=== PATIENT | female | born 1955 | race Caucasian/White ===

== ENCOUNTER 2018-12-26 05:44 | Inpatient (IN) ==
[2018-12-20 14:27] LABS: Appearance,Urine CLEAR; Bilirubin,Urine NEG (NEG); Color,Urine STRAW; Glucose,Urine (UA) NEGATIVE (NEG); Leukocyte Esterase,Urine NEG /uL (NEG); Protein,Urine NEG (NEG); Specific Gravity,Urine 1.009 (1.000-1.035); Urine Blood NEG mg/dL (<0.03); Urobilinogen,Urine NEG (NEG)
[2018-12-20 15:24] LABS: Basophils # (Auto) 0.1 K/mcL (0.0-0.3); Basophils % (Auto) 0.9 % (0.0-2.0); Eosinophils # (Auto) 0.2 K/mcL (0.0-0.7); Eosinophils % (Auto) 1.9 % (0.0-7.0); Granulocytes % (Auto) 60.7 % (38.0-78.0); Lymphocytes # (Auto) 2.3 K/mcL (1.5-4.8); Lymphocytes % (Auto) 28.3 % (15.5-49.0); Mean Cell Volume 93.2 fL (80.0-100.0); Mean Corpuscular HGB Conc 32.3 g/dL (31.0-36.0); Monocytes # (Auto) 0.7 K/mcL (0.1-0.9); Monocytes % (Auto) 8.2 % (1.0-12.0); Platelet Count 311 K/mcL (140-440); RBC 4.12 M/mcL (4.00-5.20); Red Cell Distribution Width 12.8 % (11.5-14.5)
[2018-12-20 16:19] LABS: Blood Urea Nitrogen 17 mg/dl (8-23)
[~2018-12-26 05:44] MED LIST: IPRATROPIUM/ALBUTEROL 3 ML AMPUL.NEB NEB PRN; SCOPOLAMINE 1 PATCH PATCH TOPICAL PRN
[2018-12-26] MEDS ORDERED: PREGABALIN 75 MG CAPSULE PO SCH (06:00)
[2018-12-26] MEDS ORDERED: CELECOXIB 200 MG CAPSULE PO SCH (06:00)
[2018-12-26] MEDS ORDERED: oxyCODONE 10 MG TAB.ER.12H PO SCH (06:00)
[2018-12-26] MEDS ORDERED: 0.9 % SODIUM CHLORIDE 9 ML, KETOROLAC 30 MG, ROPIVACAINE HCL/PF 49.5 ML, EPINEPHrine 0.... IJ SCH (06:00)
[2018-12-26] MEDS ORDERED: ceFAZolin 2 GM in DEXTROSE 5% IN WATER 50 ML IV SCH (06:00)
[2018-12-26] MEDS ORDERED: PREGABALIN 150 MG CAPSULE PO SCH (07:00)
[2018-12-26] MEDS ORDERED: GENTAMICIN SULFATE 800 MG/20 ML VIAL IR ONE (09:13)
[2018-12-26] MEDS ORDERED: DEXAMETHASONE 10 MG/ML VIAL IV ONE (09:30)
[2018-12-26] MEDS ORDERED: ONDANSETRON 4 MG/2 ML VIAL IV ONE (09:30)
[2018-12-26] MEDS ORDERED: ROPIVACAINE HCL/PF 30 ML VIAL IJ ONE (09:30)
[2018-12-26] MEDS ORDERED: PHENYLEPHRINE 10 MG/ML VIAL IV ONE (09:30)
[2018-12-26] MEDS ORDERED: LIDOCAINE HCL/PF 100 MG/5 ML SYRINGE IV ONE (09:30)
[2018-12-26] MEDS ORDERED: KETAMINE 100 MG/ML ML IV ONE (09:30)
[2018-12-26] MEDS ORDERED: GLYCOPYRROLATE 0.2 MG/ML VIAL IV ONE (09:30)
[2018-12-26] MEDS ORDERED: PROPOFOL 200 MG/20 ML VIAL IV ONE (09:30)
[2018-12-26] MEDS ORDERED: MIDAZOLAM 5 MG/5 ML VIAL IV ONE (09:30)
[2018-12-26] MEDS ORDERED: TRANEXAMIC ACID 1,000 MG/10 ML VIAL IV ONE ×2 (09:30→11:24)
[2018-12-26] MEDS ORDERED: METHOCARBAMOL 1,000 MG/10 ML VIAL IV PRN (11:16)
[2018-12-26] MEDS ORDERED: ONDANSETRON 4 MG/2 ML VIAL IV PRN ×2 (11:16→11:24)
[2018-12-26] MEDS ORDERED: MEPERIDINE 25 MG/ML SYRINGE IV PRN (11:16)
[2018-12-26] MEDS ORDERED: IPRATROPIUM/ALBUTEROL 3 ML AMPUL.NEB NEB PRN (11:16)
[2018-12-26] MEDS ORDERED: ACETAMINOPHEN 1,000 MG/100 ML BOTTLE IV ONE (11:16)
[2018-12-26] MEDS ORDERED: ePHEDrine 50 MG/ML AMPUL IV PRN (11:16)
[2018-12-26] MEDS ORDERED: POTASSIUM CHLORIDE 10 MEQ TABLET PO PRN (11:23)
[2018-12-26] MEDS ORDERED: ALBUTEROL SULFATE 2.5 MG/3 ML NEBULIZER IH PRN (11:23)
[2018-12-26] MEDS ORDERED: FUROSEMIDE 20 MG TABLET PO PRN (11:23)
[2018-12-26] MEDS ORDERED: LORazepam 0.5 MG TABLET PO PRN (11:23)
--- NOTE | 2018-12-26 11:23 | Brief Operative Note ---
Date of procedure: 12/26/18 Pre-op diagnosis: right knee oa Post-op diagnosis: same Procedure: right total knee arthroplasty Grafts/Implants: Yes Anesthesia: spinal Complications: none Surgeon: Main Zurita [employer]: Kristen Liu Estimated blood loss (cc): 150 Tourniquet Time (Minutes): 68 Specimens Removed/Pathology: none sent Condition: stable Disposition: PACU
[2018-12-26] MEDS ORDERED: FLEETS ADULT ENEMA PR PRN (11:24)
[2018-12-26] MEDS ORDERED: BISACODYL 10 MG SUPP.RECT PR PRN (11:24)
[2018-12-26] MEDS ORDERED: MAGNESIUM HYDROXIDE 30 ML ORAL.SUSP PO PRN (11:24)
[2018-12-26] MEDS ORDERED: BENZOCAINE/MENTHOL 1 LOZENGE PO PRN (11:24)
[2018-12-26] MEDS ORDERED: ONDANSETRON 4 MG ODT TABLET SL PRN (11:24)
[2018-12-26] MEDS ORDERED: POLYETHYLENE GLYCOL 3350 17 GM PACKET PO PRN (11:24)
[2018-12-26] MEDS ORDERED: LACTATED RINGERS 1,000 ML IV SCH (11:30)
--- NOTE | 2018-12-26 11:51 | Operative Note ---
DATE OF OPERATION: 12/26/2018 PREOPERATIVE DIAGNOSIS: Degenerative joint disease, right knee. POSTOPERATIVE DIAGNOSIS: Degenerative joint disease, right knee. PROCEDURE PERFORMED: Right total knee arthroplasty. SURGEON: Lynette Zurita M.D. VICE PRESIDENT OF DEVELOPMENT SURGEON: Kristen Liu PA-C. The PA's assistance was required for the safe and efficient completion of the entire case. This provider's expertise and technical skill were required throughout the case. The PA assisted with preoperative coordination, intraoperative retraction, wound closure, dressing and splint application, as well as postoperative documentation and care coordination. ANESTHESIA: Spinal with LMA assist. ESTIMATED BLOOD LOSS: 150 mL. COMPLICATIONS: None noted. SPECIMENS REMOVED: None. DRAINS: None. TOURNIQUET TIME: 68 minutes at 300 mmHg. IMPLANTS: DePuy Attune Revision tibial base fixed bearing size 6, cemented; DePuy Attune tibial insert fixed bearing posterior stabilized size 7, 6 mm AOX; DePuy Attune femoral posterior stabilized size 7 right, cemented; DePuy Attune patella medialized dome 38 mm, cemented AOX; DePuy CMW2 bone cement 20 grams x5. INDICATIONS: The patient has had a long-standing history of worsening pain in the knee that has failed conservative treatment. Radiographs have confirmed advanced degenerative joint disease. After a long discussion about treatment options, the patient elected to proceed with a knee arthroplasty. The risks and benefits were discussed with the patient in detail including, but not limited to, the risks of anesthesia, problems with the heart or lungs related to anesthesia, infection, compromise or injury to the nerves and blood vessels, deep venous thrombosis, pulmonary embolism, pneumonia, continued pain after surgery, worsening pain or symptoms after surgery, swelling, loss of motion, instability, leg length discrepancy, and need for repeat surgery. DESCRIPTION OF PROCEDURE: The patient was seen in the pre-anesthesia waiting room where all questions were answered and the correct side and site were identified and marked. The patient was transferred to the operating room and administered the anesthetic and given pre-operative antibiotics. A time-out was then called. The extremity was prepped and draped, exsanguinated, and the tourniquet was inflated to 300 mmHg. A midline skin incision was then made with a standard medial parapatellar arthrotomy. Debridement of the menisci, ACL, and PCL was performed followed by balancing releases in the medial lateral plane. We then established intramedullary access to both the femur and tibia in a standard fashion. The femoral guide alanna was initially placed with the distal femoral guide, pinned into place, and the distal femoral cut was performed and checked with a flat plate. We then turned our attention to the tibia. The intramedullary guide was placed with the proximal tibial cutting block. The block was appropriately positioned off the affected side, varus and valgus was checked with the extra-medullary guide, and the block was pinned into place. The proximal tibial cut was performed and the tibia was prepared for the tibial implant with appropriate rotation. The tibia, femur, and posterior compartment were debrided of osteophytes, loose bodies, and meniscal fragments We then used the gap balancing technique to balance extension with the first two cuts and good balancing was obtained with a 10 millimeter gap block. We turned our attention back to the femur and used the referencing block and implant to size appropriately. Using the gap balancing technique for the flexion space we set our rotation of the femur off the tibial cut. Anesthesia gave the patient 1 gram of Tranexamic Acid via an intravenous route. We placed the 4 in 1 cutting block and made anterior, posterior, and chamfer cuts. Box plasty cuts were then made in a standard fashion for the posterior stabilized prosthesis. We then completed osteophyte release and posterior capsule release from the posterior compartment. Trials were placed and we chose the polyethylene insert thickness that provided the best stability in all planes. With the trials in place, we did a measured resection for a resurfacing patella. We sized the patella and placed the patella trial and performed a lateral facetectomy with the saw and rongeur. Good tracking was obtained. We removed all trials, irrigated and dried all cut surfaces. We cemented the components into place including tibia, femur and patella. We placed a trial liner and held the knee in full extension with the patella compressed while the cement cured. We then removed all excess cement and placed the final polyethylene tibiofemoral component. Irrigation with 3 liters of antibiotic saline was then performed using jet-lavage. We let the tourniquet down and coagulated bleeding vessels. We injected a 100 cubic centimeter volume including Ropivacaine 49.25 cubic centimeters at 5 milligrams per cubic centimeter, Ketorolac 30 milligrams, and Epinephrine 0.5 milligrams into 100 cubic centimeters volume of normal saline. We closed the retinaculum with #2 Stratafix and 0 Vicryl. We closed the subcutaneous tissue and skin in layers out to Dermabond on the skin. A sterile pressure dressing was applied. All needle and sponge counts were correct. The patient was transferred to the recovery room in stable condition. ANA PAULA:olivia Job ID: [id number] Doc ID: [id number] Lynette Zurita MD
[2018-12-26] MEDS: fentaNYL 100 MCG/2 ML VIAL IV PRN ×4 (11:57→12:08)
[2018-12-26] MEDS: KETOROLAC 15 MG/ML VIAL IV SCH ×3 (13:16→23:30)
[2018-12-26] MEDS: 0.9 % SODIUM CHLORIDE 1,000 ML IV SCH ×2 (13:18→19:37)
--- NOTE | 2018-12-26 13:26 | XRay Report ---
CLINICAL INFORMATION: Post-Op Total Knee COMPARISON: None. FINDINGS: Total knee prostheses is anatomically aligned. No osseous abnormality. Periarticular gas and soft tissue swelling seen - as expected. IMPRESSION: Negative Interpreted and Authenticated by: Main Del Cid 12/26/18
[2018-12-26] MEDS: oxyCODONE/APAP 5/325MG TABLET PO PRN ×3 (13:27→22:02)
[2018-12-26] MEDS: 0.9 % SODIUM CHLORIDE 10 ML SYRINGE IV SCH ×2 (15:12→23:30)
[2018-12-26] MEDS: ceFAZolin 1 GM VIAL IV SCH ×2 (15:25→23:30)
[2018-12-26] MEDS: PREGABALIN 150 MG CAPSULE PO SCH ×2 (15:41→20:29)
[2018-12-26] MEDS: ASPIRIN 325 MG ENTERIC COATED TABLET PO SCH (20:29)
[2018-12-26] MEDS: DOCUSATE SODIUM 100 MG CAPSULE PO SCH (20:29)
[2018-12-26] MEDS: SENNOSIDES 1 TABLET PO SCH (20:29)
[2018-12-26] MEDS: DONEPEZIL 10 MG TABLET PO SCH (20:30)
[2018-12-26] MEDS: ARIPIPRAZOLE 5 MG TABLET PO SCH (20:30)
[2018-12-26] MEDS: METHOCARBAMOL 750 MG TABLET PO PRN (20:34)
[2018-12-26] MEDS: Budesonide/Formoterol Fumarate [Symbicort] 80-4.5 mcg Inhaler INH SCH (20:37)
[2018-12-26] MEDS ORDERED: BUDESONIDE 0.5 MG/2 ML AMPUL.NEB NEB PRN (21:00)
[2018-12-27] MEDS: oxyCODONE/APAP 5/325MG TABLET PO PRN ×6 (02:04→23:16)
[2018-12-27] MEDS: METHOCARBAMOL 750 MG TABLET PO PRN ×2 (05:28→23:17)
[2018-12-27] MEDS: 0.9 % SODIUM CHLORIDE 10 ML SYRINGE IV SCH ×3 (05:28→20:35)
[2018-12-27] MEDS: KETOROLAC 15 MG/ML VIAL IV SCH ×4 (05:28→23:17)
--- NOTE | 2018-12-27 08:01 | Orthopedic Progress Note ---
Subjective Patient information: Note initiated : 12/27/18 at 7:59 am Service Date, if different from initiated Date: [] Patient: Santo Morocho 63 y/o F admitted on 12/26/18 for Right Total Knee Arthroplasty. Chief Complaint: [] Interval history: doing well. pain under control Objective Vital signs: Vital Signs Temp Pulse Pulse Resp BP Pulse Ox 12/27/18 07:56 97.1 F 58 L 18 123/54 97 12/27/18 03:36 98.1 F 59 L 20 136/72 92 12/26/18 23:31 97.2 F 66 20 111/51 92 12/26/18 19:51 97.3 F 66 18 120/56 90 12/26/18 15:35 97.8 F 68 14 118/56 91 12/26/18 14:30 58 L 114/58 96 12/26/18 14:00 65 114/58 94 12/26/18 13:33 65 116/58 93 12/26/18 13:18 66 128/66 93 12/26/18 13:03 60 120/53 94 12/26/18 12:52 95 12/26/18 12:48 63 150/67 96 12/26/18 12:30 69 141/62 92 12/26/18 12:25 97.4 F 59 L 12 138/74 93 12/26/18 12:10 97.4 F 66 11 L 145/68 93 12/26/18 11:55 97.6 F 62 11 L 130/66 95 12/26/18 11:50 97.1 F 57 L 17 99/71 95 12/26/18 11:45 74 8 L 135/59 96 12/26/18 11:40 58 L 9 L 117/36 95 12/26/18 11:35 97.0 F 63 10 L 128/52 96 Intake and Output 12/26/18 12/27/18 12/27/18 21:59 05:59 13:59 Intake Total 1400 1800 Output Total 25 Balance 1400 1775 Intake: IV 1000 Sodium Chloride 0.9% 1,000 ml @ 1000 125 mls/hr IV .Q8H [facility] Rx#: [id number] Oral 1400 800 Output: Void Amount 25 Other: Meal Dinner Percent of Meal Consumed 100% Urine Appearance Clear Urine Color Light Massiel Weight 294 lb Intake & Output: Intake & Output 12/26/18 12/27/18 12/27/18 21:59 05:59 13:59 Intake Total 1400 1800 Output Total 25 Balance 1400 1775 Weight 294 lb Intake: IV 1000 Sodium Chloride 0.9% 1,000 ml @ 1000 125 mls/hr IV .Q8H [facility] Rx#: [id number] Oral 1400 800 Output: Void Amount 25 Other: Meal Dinner Percent of Meal Consumed 100% Urine Appearance Clear Urine Color Light Massiel Incision: Yes healing Incision clean and dry: Yes Dressing: Yes clean, Yes dry, Yes intact Weight bearing status: full Neurological exam IM: Yes alert, Yes oriented X3, Yes motor sensory intact, Yes neurovascular intact Extremities exam IM: No calf tenderness, Yes Foot pink and warm, Yes neurovascular intact - Labs CBC & BMP: 12/27/18 05:08 12/20/18 11:48 Labs: Orthopedic Labs 12/20/18 11:48 PT 12.8 INR 1.0 12/27/18 12/20/18 05:08 11:48 Hgb 10.5 L 12.4 Hct 32.5 L 38.4 Assessment and Plan (1) Knee osteoarthritis pod 1 s/p tka wbat pain control dvt prophylaxis d/c planning - likely home tomorrow Status: Acute (2) Arthritis Status: Chronic
--- NOTE | 2018-12-27 08:04 | Discharge Summary ---
Ortho Discharge - TKA - Patient Instructions Diet: Regular Diet Activity: activity as tolerated, ambulate with assistive device, weight bearing as tolerated Total Knee Protocol: For Total Knee: Start ROM TOMI with stationary bike or rocking chair. Work on gaining full extension of knee. Posterior dislocation precautions provided. Hip abductor strengthening and gait training instructions provided. Apply Cryocuff as instructed. Dressing Care: May shower in 2 days - Problem Maintenance (1) Knee osteoarthritis Status: Acute (2) Arthritis Status: Chronic - Follow Up Plan Follow Up Appointments: Kristen Liu PA-C [Physician Electrical And Instrument Mechanic] - 01/10/19 9:40 am Disposition: Home, Self-Care Prognosis: Good Rehab Potential: Good I certify that the patient requires SNF services: No Overall status at discharge: patient is progressing back to baseline
[2018-12-27] MEDS: SPIRONOLACTONE 25 MG TABLET PO SCH (08:47)
[2018-12-27] MEDS: OLMESARTAN MEDOXOMIL 20 MG TABLET PO SCH (08:48)
[2018-12-27] MEDS: ARIPIPRAZOLE 5 MG TABLET PO SCH ×2 (08:48→20:31)
[2018-12-27] MEDS: PREGABALIN 150 MG CAPSULE PO SCH ×3 (08:48→20:31)
[2018-12-27] MEDS: BISOPROLOL 5 MG TABLET PO SCH (08:48)
[2018-12-27] MEDS: DULoxetine 30 MG CAPSULE PO SCH (08:48)
[2018-12-27] MEDS: DOCUSATE SODIUM 100 MG CAPSULE PO SCH ×2 (08:49→20:32)
[2018-12-27] MEDS: CHLORTHALIDONE 25 MG TABLET PO SCH (08:49)
[2018-12-27] MEDS: ASPIRIN 325 MG ENTERIC COATED TABLET PO SCH ×2 (08:49→20:32)
[2018-12-27] MEDS: Budesonide/Formoterol Fumarate [Symbicort] 80-4.5 mcg Inhaler INH SCH ×2 (08:51→20:34)
[2018-12-27] MEDS: SENNOSIDES 1 TABLET PO SCH (20:32)
[2018-12-27] MEDS: DONEPEZIL 10 MG TABLET PO SCH (20:32)
[2018-12-28] MEDS: oxyCODONE/APAP 5/325MG TABLET PO PRN ×2 (03:36→07:55)
[2018-12-28] MEDS: 0.9 % SODIUM CHLORIDE 10 ML SYRINGE IV SCH (05:24)
[2018-12-28] MEDS: KETOROLAC 15 MG/ML VIAL IV SCH ×2 (05:24→05:32)
--- NOTE | 2018-12-28 07:09 | Orthopedic Progress Note ---
Subjective Patient information: Note initiated : 12/28/18 at 7:09 am Service Date, if different from initiated Date: [] Patient: Santo Morocho 63 y/o F admitted on 12/26/18 for Right Total Knee Arthroplasty. Chief Complaint: [] Interval history: doing well ambulating, no complaints Objective Vital signs: Vital Signs Temp Pulse Resp BP BP Pulse Ox 12/28/18 03:37 97.7 F 68 18 102/49 94 12/27/18 23:32 97.7 F 69 20 95/37 94 12/27/18 18:33 99.1 F H 60 20 93/44 96 12/27/18 16:00 97.4 F 65 18 104/49 95 12/27/18 12:00 97.1 F 64 18 90/50 98 12/27/18 07:56 97.1 F 58 L 18 123/54 97 Intake and Output 12/27/18 12/28/18 12/28/18 21:59 05:59 13:59 Intake Total 1840 400 Output Total 275 100 Balance 1565 300 Intake: Oral 1840 400 Output: Void Amount 275 100 Other: Meal Dinner Percent of Meal Consumed 100% Feeding Ability Independent Urine Appearance Clear Clear Urine Color Bright Yellow Dark Yellow # Voids 1 1 Weight 294 lb Intake & Output: Intake & Output 12/27/18 12/28/18 12/28/18 21:59 05:59 13:59 Intake Total 1840 400 Output Total 275 100 Balance 1565 300 Weight 294 lb Intake: Oral 1840 400 Output: Void Amount 275 100 Other: Meal Dinner Percent of Meal Consumed 100% Feeding Ability Independent Urine Appearance Clear Clear Urine Color Bright Yellow Dark Yellow # Voids 1 1 Incision: Yes healing Incision clean and dry: Yes Dressing: Yes clean, Yes dry, Yes intact Weight bearing status: full Neurological exam IM: No abnormal gait, Yes alert, Yes oriented X3, Yes ne urovascular intact Extremities exam IM: Yes calf tenderness, Yes Foot pink and warm, Yes neurovascular intact - Labs CBC & BMP: 12/28/18 04:52 12/20/18 11:48 Labs: Orthopedic Labs 12/20/18 11:48 PT 12.8 INR 1.0 12/28/18 12/27/18 12/20/18 04:52 05:08 11:48 Hgb 8.9 L 10.5 L 12.4 Hct 27.5 L 32.5 L 38.4 Assessment and Plan (1) Knee osteoarthritis pod 2 s/p tka wbat pain control dvt prophylaxis d/c planning - home today Status: Acute (2) Arthritis Status: Chronic
[2018-12-28] MEDS: DOCUSATE SODIUM 100 MG CAPSULE PO SCH (07:54)
[2018-12-28] MEDS: ARIPIPRAZOLE 5 MG TABLET PO SCH (07:54)
[2018-12-28] MEDS: OLMESARTAN MEDOXOMIL 20 MG TABLET PO SCH (07:54)
[2018-12-28] MEDS: CHLORTHALIDONE 25 MG TABLET PO SCH (07:54)
[2018-12-28] MEDS: PREGABALIN 150 MG CAPSULE PO SCH (07:57)
[2018-12-28] MEDS: ASPIRIN 325 MG ENTERIC COATED TABLET PO SCH (07:57)
[2018-12-28] MEDS: DULoxetine 30 MG CAPSULE PO SCH (07:57)
[2018-12-28] MEDS: SPIRONOLACTONE 25 MG TABLET PO SCH (07:58)
[2018-12-28] MEDS: BISOPROLOL 5 MG TABLET PO SCH (07:59)
[2018-12-28] MEDS: Budesonide/Formoterol Fumarate [Symbicort] 80-4.5 mcg Inhaler INH SCH (09:28)
== END 2018-12-28 10:59 | disposition home or self-care (01) | DRG 470 ==
LOC: MEDSUR 05:44
PROVIDERS: ADMIT Orthopaedic Surgery Sports Medicine; ATTEND Orthopaedic Surgery Sports Medicine

== ENCOUNTER 2022-03-06 17:49 | Inpatient (IN) ==
--- NOTE | 2022-03-06 18:01 | Emergency Department Note ---
HPI General Chief complaint: Rib Pain Stated complaint: rib pain Time Seen by Provider: 03/06/22 17:57 Source: patient Mode of arrival: ambulatory Limitations: no limitations History of Present Illness HPI Narrative: CurrentlyNarrative: Patient is a 66-year-old female that comes into the emergency department today by EMS after she tripped at home and had a ground-level fall. Patient indicates that she hit the left side of her ribs on the ground and had a sharp pain to the lateral side of left rib. This is aggravated with taking a deep breath. She rates the pain 8 out of 10 on 0-10 numerical pain scale. She denies hitting her head, loss of consciousness, or pain in any other area of her body today. She indicates that she fell approximately 2 hours prior to arrival to the emergency department. She has not had any fevers, chills, cough, shortness of breath, abdominal pain, nausea, or vomiting. She does have a history of COPD and typically wears 2 L of O2 continuously. Related Data Home Medications Medication Instructions Recorded Confirmed budesonide 0.25 mg/2 mL suspension 0.25 mg IH PRN PRN Shortness Of 12/20/18 02/03/22 for nebulization Breath chlorthalidone 25 mg tablet 25 mg PO DAILY 12/20/18 02/03/22 pregabalin 150 mg capsule 150 mg PO TID 12/20/18 02/03/22 diltiazem HCl 360 mg capsule,24 360 mg PO QAM 10/15/20 02/03/22 hr,extended release Previous Rx's Medication Instructions Recorded albuterol sulfate 2.5 mg (3 mL) inhalation PRN 02/16/21 Shortness Of Breath #180 mL tamsulosin 0.4 mg capsule 0.4 mg PO QHS #30 caps 12/02/21 lorazepam 0.5 mg tablet See Rx Instructions .Route 12/24/21 .COMPLEX #35 tabs aripiprazole 5 mg tablet See Rx Instructions .Route 02/02/22 .COMPLEX #15 tabs benztropine 0.5 mg tablet 0.5 mg PO QHS #30 tabs 02/02/22 doxepin 25 mg capsule 25 mg PO QHS #30 caps 02/02/22 duloxetine 60 mg capsule,delayed 120 mg PO DAILY #60 caps 02/02/22 release lamotrigine 100 mg tablet 50 mg PO QDAY 30 days #15 tabs 02/02/22 fluticasone 250 mcg-salmeterol 50 1 inh inhalation BID #60 ea 02/03/22 mcg/dose blistr powdr for inhalation (Advair Diskus) ipratropium 20 mcg-albuterol 100 1 puff inhalation QID PRN 02/03/22 mcg/actuation mist for inhalation shortness of breath or wheezing #4 (Combivent Respimat) grams Allergies Allergy/AdvReac Type Severity Reaction Status Date / Time fluoxetine [From Prozac] AdvReac Mild Agitated Verified 03/06/22 17:52 prednisone AdvReac Mild Agitated Verified 03/06/22 17:52 tramadol AdvReac Mild Wheezing Verified 03/06/22 17:52 Review of Systems ROS ROS Narrative: Narrative: All systems ED: reviewed and negative except as stated. [facility] Narrative Patient History Narrative: Narrative: Medical/Surgical/Family History All Active Problems (Updated 03/06/22 @ 20:43 by CECILY Dugan) Multiple rib fractures (Acute) Urinary tract infection (Acute) Bladder pain (Chronic 09/29/09) Interstitial cystitis (Chronic 09/29/09) Burning pain (Chronic 09/29/09) Suprapubic abdominal pain (Chronic 09/29/09) Urinary frequency (Chronic 09/29/09) Nocturia (Chronic 09/29/09) Urgency of urination (Chronic 09/29/09) Bipolar disorder (Chronic) Depression (Chronic) Dizzy spells (Chronic) Headache (Chronic) Arthritis (Chronic) Unspecified symptom associated with female genital organs (Chronic) Dysuria (Chronic) Incomplete bladder emptying (Chronic 01/08/10) Knee osteoarthritis (Chronic) Endometriosis (Chronic) Tremor (Chronic) Pain, joint, ankle, right (Chronic) Atrial fibrillation (Chronic) Hypertension (Chronic) Borderline personality disorder (Chronic) Menopausal disorder (Chronic) Back pain (Chronic) Suicidal ideation (Chronic) Bipolar II disorder (Chronic) Generalized anxiety disorder (Chronic) Excoriation (skin-picking) disorder (Chronic) Medication management (Chronic) Left knee pain (Chronic) Knee joint effusion (Chronic) Degenerative joint disease (Chronic) Abdominal pain (Chronic) Pelvic pain (Chronic) Left leg pain (Chronic) Right leg pain (Chronic) Chronic pain (Chronic) GERD (gastroesophageal reflux disease) (Chronic) Nicotine dependence, cigarettes, uncomplicated (Chronic) COPD (chronic obstructive pulmonary disease) (Chronic) Chronic kidney disease, stage 3 (Chronic) CHF (congestive heart failure) (Chronic) Protein malnutrition (Chronic) History of right knee joint replacement (Chronic) Fibromyalgia (Chronic) Venous insufficiency (Chronic) Chronic back pain (Chronic) Colitis (Chronic) Paroxysmal atrial fibrillation with RVR (Chronic) Acute on chronic diastolic CHF (congestive heart failure) (Chronic) Low back pain (Chronic) Chronic right SI joint pain (Acute) Sacroiliitis (Acute) Hypoxemia (Chronic) BETSY (obstructive sleep apnea) (Acute) Spinal stenosis, lumbar region with neurogenic claudication (Acute) Pulmonary hypertension (Chronic) Extrapyramidal and movement disorder (Chronic) Medical History Abdominal pain Acute on chronic diastolic CHF (congestive heart failure) Arthritis Atrial fibrillation Back pain Bipolar disorder Stable as of 09/29/09 Bladder pain (09/29/09) Borderline personality disorder Burning pain (09/29/09) in suprapubic area relieved only slightly by voiding. Daily flare-ups CHF (congestive heart failure) Chronic back pain Chronic kidney disease, stage 3 Chronic pain Chronic right SI joint pain Colitis COPD (chronic obstructive pulmonary disease) Degenerative joint disease Depression Stable as of 09/29/09 Dizzy spells Dysuria Endometriosis Fibromyalgia GERD (gastroesophageal reflux disease) Headache Hypertension Hypoxemia Incomplete bladder emptying (01/08/10) Interstitial cystitis (09/29/09) Diagnosed 20+ years ago Knee joint effusion Knee osteoarthritis Left knee pain Left leg pain Low back pain Menopausal disorder Morbid obesity Nicotine dependence, cigarettes, uncomplicated Nocturia (09/29/09) 2-3X BETSY (obstructive sleep apnea) Pain, joint, ankle, right Paroxysmal atrial fibrillation with RVR Pelvic pain Protein malnutrition Pulmonary hypertension Right leg pain Sacroiliitis Suicidal ideation Suprapubic abdominal pain (09/29/09) Tremor Unspecified symptom associated with female genital organs Urgency of urination (09/29/09) Urinary frequency (09/29/09) every hour Venous insufficiency Surgical History History of back surgery (~10/05/17) Dr. Vidales History of biopsy of bladder (10/07/09) History of bladder surgery (~12/2009) Dr. Hernandez - Bladder pacemaker, to help with bladder urgency History of delivery 1 History of colonoscopy (~03/2012) Next due 2021 History of cystoscopy (10/07/09) with hydrodistention History of hysterectomy (~1989) History of right knee joint replacement History of surgery Placement of permanent sacral nerve stimulator Hx of tonsillectomy Family History Family/Other Alcoholism Depression Menopausal disorder Chronic back pain GERD (gastroesophageal reflux disease) Venous insufficiency Plantar fasciitis, right Interstitial cystitis Bipolar II disorder Paternal Grandmother Father Depression Other Hypertension Social History Smoking Status: Former smoker Alcohol Intake Frequency: former alcohol drinker Substance Use: does not use Exam Narrative Narrative: Narrative: General Limitations: no limitations General appearance: Present alert, in no apparent distress and obese Head Head: Present atraumatic, normocephalic and normal inspection Eye Eye: Present normal appearance; Absent scleral icterus ENT ENT: Present normal exam, normal oropharynx and mucous membranes moist Neck Neck: Present normal inspection, full ROM and other (No spinous process tenderness.) Chest Chest: Present normal inspection, symmetric chest wall rise and other (Tenderness with palpation on the left lateral rib #5 through 8. No crepitus or grating. No ecchymosis or erythema. No deformities.) Respiratory Respiratory: Present normal lung sounds bilaterally; Absent respiratory distress, rales/crackles or accessory muscle use Cardiovascular Cardiovascular: Present regular rate, normal rhythm and normal heart sounds Adbominal Abdominal: Present soft; Absent distention or tenderness Extremities Extremities: Present normal inspection, normal capillary refill and other (Tenderness with palpation on the anterior side of left knee and left lower leg. No ecchymosis, swelling, or erythema. Pedal pulses 2+ bilaterally. Normal sensation to the lower extremities. Pelvis stable without any tenderness. No tenderness with palpation of the upper extremities. ) Back Back: Absent spinous process tenderness Neurological Neurological: Present alert, oriented X3 and CN II-XII intact; Absent motor sensory deficit Expanded Neurological Patient oriented to: Present person; Absent place or time Speech: Present fluid speech CRANIAL NERVES: EOM function (II, III, IV, ): Normal, facial sensation (V): Normal, facial palsy (VII): Normal, gag reflex (IX): Normal, spinal accessory function (XI): Normal and tongue deviation (XII): Normal Motor strength - LUE: 4/5 Motor strength - RUE: 4/5 Motor strength - LLE: 4/5 Motor strength - RLE: 4/5 SENSORY EXAM UPPER EXTREMITY: Normal: light touch SENSORY EXAM LOWER EXTREMITY: Normal: light touch Coma Scale Eye Opening: Spontaneous Coma Scale Motor Response: Obeys Commands Coma Scale Verbal Response: Confused Coma Scale Total: 14 Psychiatric Psychiatric: Present normal affect and normal mood Skin Skin: Present warm (WNL), dry and normal color Course Vital Signs Vital signs: Vital Signs Temperature 97.9 F 03/06/22 17:49 Pulse Rate 73 03/06/22 17:49 Respiratory Rate 24 H 03/06/22 17:49 Blood Pressure 127/77 03/06/22 17:49 Pulse Oximetry (%) 96 03/06/22 17:49 Oxygen Delivery Method 03/06/22 17:49 Oxygen Flow Rate (L/min) 3 03/06/22 17:49 Temperature 97.9 F 03/06/22 17:49 Pulse Rate 61 03/06/22 18:46 Respiratory Rate 24 H 03/06/22 17:49 Blood Pressure 136/67 03/06/22 18:46 Pulse Oximetry (%) 97 03/06/22 18:46 Oxygen Delivery Method 03/06/22 17:49 Oxygen Flow Rate (L/min) 3 03/06/22 17:49 [facility] MDM Narrative Medical decision making narrative: Narrative: 66-year-old female who had a ground-level fall today and she described as a mechanical ground-level fall and denied hitting her head. Rib x-ray obtained today given that she was complaining of left sided rib pain. My review I do see 2 fractures without any pneumothorax or any other significant finding. Patient' s had arrived to the emergency department after x-ray was obtained of the ribs and he indicates that yesterday patient fell and hit her head and over the last month has been having episodes of confusion and increased multiple falls. Ordered head CT after obtaining this additional information from the patient's spouse today as well as added CBC, Chem-8 panel, and urinalysis. Patient was also complaining of pain in the left knee and left lower leg. Ordered x-ray of left knee and tib-fib today. Knee x-ray to my review shows osteoarthritis. No fracture identified of the tib-fib film or x-ray film today. Patient's head CT scan today as read by direct radiology and preliminary report indicates no acute intracranial abnormality. No intracranial hemorrhage and CT is normal without any skull fracture or cephalohematoma. The patient CBC shows mild anemia with hemoglobin 9.9 and hematocrit 32.8. Patient denies any abdominal pain, melena, hematochezia, or active blood loss and there does not appear to be any source of blood loss. Urinalysis did show positive nitrites, moderate blood, and large leukocytes on the urine dipstick. Specific gravity 1.025. Patient's creatinine level 1.8 today on her chemistry which patient's baseline is previous finding of 1.78 in September 2020 as well as 1.51. Patient was given a liter of normal saline today intravenously and 2 g Rocephin for treatment of UTI. Patient was medicated with IV Dilaudid for pain management x2 doses per Given that patient is requiring multiple doses of pain medication for pain management regarding rib fracture today and with urinary tract infection and multiple falls I feel patient would best be managed by hospitalization at [facility]. I was able to consult with the hospitalist at [facility] about hospital admission, and Dr. Uribe will admit patient to [facility] today. Lab Data Lab results reviewed: Yes I reviewed the patient's lab results. Radiology Data Radiology results reviewed: Yes I reviewed the patient's radiology results. Discharge Plan Patient/Caregiver Discharge Instructions Pt seen by DIRECTOR OF HOME CARE HOSPICE/PA only: No Clinical Impression: Left leg pain, Urinary tract infection Multiple rib fractures Qualifiers: Encounter type: initial encounter Fracture type: closed Laterality: left Qualified Code(s): S22.42XA - Multiple fractures of ribs, left side, initial encounter for closed fracture Patient Disposition: Xfer As Inpt ([facility]) Follow up with: Vincenzo William MD [Primary Care Provider] - Prescriptions: No Action lamotrigine 100 mg tablet 50 mg PO QDAY 30 Days Qty: 15 3RF benztropine 0.5 mg tablet 0.5 mg PO QHS Qty: 30 2RF aripiprazole 5 mg tablet See Rx Instructions .ROUTE .COMPLEX Qty: 15 2RF Dose Instruction: TAKE ONE TABLET BY MOUTH AT BEDTIME Rx Instructions: TAKE ONE HALF TABLET BY MOUTH AT BEDTIME doxepin 25 mg capsule 25 mg PO QHS Qty: 30 3RF duloxetine 60 mg capsule,delayed release(DR/EC) 120 mg PO DAILY Qty: 60 3RF diltiazem HCl 360 mg capsule,extended release 24 hr 360 mg PO QAM lorazepam 0.5 mg tablet See Rx Instructions .ROUTE .COMPLEX Qty: 35 1RF Rx Instructions: TAKE ONE TABLET BY MOUTH DAILY + ONE TABLET BY MOUTH NIGHTLY NEEDED FOR PANIC ATTACK SYMPTOMS albuterol sulfate 2.5 mg /3 mL (0.083 %) solution for nebulization 2.5 mg inhalation PRN Qty: 180 6RF Combivent Respimat 20-100 mcg/actuation mist 1 puff inhalation QID PRN (Reason: shortness of breath or wheezing) Qty: 4 6RF Rx Instructions: space evenly during waking hours fluticasone propion-salmeterol [Advair Diskus] 250-50 mcg/dose blister with device 1 inh inhalation BID Qty: 60 11RF Rx Instructions: Vigorously gargle, rinse, and spit after each use chlorthalidone 25 MG tablet 25 mg PO DAILY pregabalin 150 MG capsule 150 mg PO TID budesonide 0.25 MG/2 ML suspension for nebulization 0.25 mg IH PRN PRN (Reason: Shortness Of Breath) tamsulosin 0.4 mg capsule 0.4 mg PO QHS Qty: 30 0RF
[2022-03-06] MEDS ORDERED: 0.9 % SODIUM CHLORIDE 1,000 ML IV ONE (19:14)
[2022-03-06 19:30] LABS: POC Calcium, Ionized 1.11 (1.16-1.32); POC Creatinine 1.8 (0.6-1.2); POC Potassium 4.2 (3.3-5.1)
[2022-03-06 19:52] LABS: Basophils # (Auto) 0.06 K/mcL (0.00-0.30); Basophils % (Auto) 0.6 % (0.0-2.0); Eosinophils # (Auto) 0.11 K/mcL (0.00-0.70); Eosinophils % (Auto) 1.1 % (0.0-7.0); Hematocrit 32.8 % (34.1-44.9); Hemoglobin 9.9 g/dL (11.2-15.7); Lymphocytes % (Auto) 21.6 % (15.5-49.0); Mean Cell Volume 98.2 fL (80.0-100.0); Mean Corpuscular HGB Conc 30.2 g/dL (31.0-36.0); Mean Platelet Volume 10.3 fL (7.4-10.4); Monocytes # (Auto) 1.31 K/mcL (0.10-0.90); Monocytes % (Auto) 12.9 % (1.0-12.0); Neutrophils % (Auto) 63.3 % (38.0-78.0); Platelet Count 231 K/mcL (140-440); RBC 3.34 M/mcL (3.59-5.38); Red Cell Distribution Width 13.8 % (11.5-14.5); WBC 10.2 K/mcL (4.5-11.0)
[2022-03-06] MEDS: HYDROmorphone 0.5 MG/0.5 ML SYRINGE IV PRN ×2 (20:18→21:19)
[2022-03-06] MEDS ORDERED: cefTRIAXone 2 GM in DEXTROSE 5% IN WATER 50 ML IV ONE (20:21)
[2022-03-06 20:44] LABS: Appearance,Urine Cloudy (Clear); Bacteria,Urine MOD /hpf (0); Bilirubin,Urine Negative (Negative); Color,Urine Yellow; Culture Indicated,Urine yes; Glucose,Urine (UA) Negative (Negative); Ketones,Urine Negative (Negative); Leukocyte Esterase,Urine Large /uL (Negative); Nitrate,Urine Positive (Negative); Specific Gravity,Urine 1.025 (1.000-1.035); Urine Blood Moderate ery/mcL (Negative); Urine RBC 59 /hpf (0-3); Urine Squamous Epithelial Cell 0 /hpf (0-4); Urine WBC > 182 /hpf (0-4); Urobilinogen,Urine Normal
[2022-03-06] MEDS ORDERED: LORazepam 0.5 MG TABLET PO PRN (21:07)
[2022-03-06] MEDS ORDERED: ALBUTEROL SULFATE 2.5 MG/3 ML NEBULIZER INH PRN (21:15)
--- NOTE | 2022-03-06 21:27 | Internal Med History&Physical ---
HPI History of Present Illness Patient information: Note initiated : 03/06/22 at 9:17 pm Service Date, if different from initiated Date: [] Patient: Santo Morocho 66 y/o F admitted on for rib pain. Chief Complaint: [falls] Chief complaint: falls History of present illness: Ms. Morocho is a 66 year old F history of atrial fibrillation's on Eliquis status post pacemaker placement, COPD on home oxygen therapy baseline 2 L/min, congestive heart failure, chronic kidney disease stage III, essential hypertensions, bipolar depressions, knees osteoarthritis status post right knee replacement, presenting with frequent falls. It was reported that patient's fell around 2 AM this morning and then fell again in the afternoon. The first episode was being described as the patient's leg gave out while she was in the bathroom and she landed on her left side. The second fall episode was not being described in much details by either the family or the at the bedside. Patient's denies any chest pain or palpitations or shortness of breath at either incidents. There was also no reported loss of consciousness. Patient is currently complaining of left lateral chest pain, 8 out of 10 in severity, constant, and unable to describe the nature of the pain. CT of the head without contrast did not show any intracranial hemorrhage or any other acute intracranial pathologies. Chest x-ray preliminary result showing at least 2 left-sided rib fractures without complications such as pneumothorax or hemothorax. Labs significant for UA showing the presence of urinary tract infections. H&H stable at the baseline. Admission request was called for symptoms controlled for rib fractures as well as treatment for urinary tract infections. In additions, physical therapy Occupational Therapy evaluations and treatments for placement pending also required. Constitutional Constitutional: Absent chills, excessive sweating, fatigue, fever(s) or weakness EENT Eyes: Absent blurry vision, change in vision, loss of vision or other visual disturbances Ears: Absent decreased hearing or tinnitus Nose, mouth and throat: Absent abnormal hearing, dry mouth, headache(s), nasal congestion or sore throat Cardiovascular Cardiovascular: Present chest pain and chest pain at rest; Absent edema, irregular heart rhythm or palpatations Respiratory Respiratory: Absent cough, dyspnea or wheezing Gastrointestinal Gastrointestinal: Absent abdominal pain, constipation, diarrhea, nausea or vomiting Musculoskeletal Musculoskeletal: Absent back pain, deformity, limited range of motion, muscle cramps, muscle weakness or numbness Integumentary Integumentary: Absent lesions, rash or wounds Neurological Neurological: Absent focal weakness, headache(s) or numbness Psychiatric Psychiatric: Absent anxiety, depression or hallucinations PFSH PFSH All Active Problems (Updated 03/06/22 @ 21:25 by Samy Uribe MD) Osteoarthritis of knees, bilateral (Acute) Multiple rib fractures (Acute) Urinary tract infection (Acute) Bladder pain (Chronic 09/29/09) Interstitial cystitis (Chronic 09/29/09) Burning pain (Chronic 09/29/09) Suprapubic abdominal pain (Chronic 09/29/09) Urinary frequency (Chronic 09/29/09) Nocturia (Chronic 09/29/09) Urgency of urination (Chronic 09/29/09) Bipolar disorder (Chronic) Depression (Chronic) Dizzy spells (Chronic) Headache (Chronic) Arthritis (Chronic) Unspecified symptom associated with female genital organs (Chronic) Dysuria (Chronic) Incomplete bladder emptying (Chronic 01/08/10) Knee osteoarthritis (Chronic) Endometriosis (Chronic) Tremor (Chronic) Pain, joint, ankle, right (Chronic) Atrial fibrillation (Chronic) Hypertension (Chronic) Borderline personality disorder (Chronic) Menopausal disorder (Chronic) Back pain (Chronic) Suicidal ideation (Chronic) Bipolar II disorder (Chronic) Generalized anxiety disorder (Chronic) Excoriation (skin-picking) disorder (Chronic) Medication management (Chronic) Left knee pain (Chronic) Knee joint effusion (Chronic) Degenerative joint disease (Chronic) Abdominal pain (Chronic) Pelvic pain (Chronic) Left leg pain (Chronic) Right leg pain (Chronic) Chronic pain (Chronic) GERD (gastroesophageal reflux disease) (Chronic) Nicotine dependence, cigarettes, uncomplicated (Chronic) COPD (chronic obstructive pulmonary disease) (Chronic) Chronic kidney disease, stage 3 (Chronic) CHF (congestive heart failure) (Chronic) Protein malnutrition (Chronic) History of right knee joint replacement (Chronic) Fibromyalgia (Chronic) Venous insufficiency (Chronic) Chronic back pain (Chronic) Colitis (Chronic) Paroxysmal atrial fibrillation with RVR (Chronic) Acute on chronic diastolic CHF (congestive heart failure) (Chronic) Low back pain (Chronic) Chronic right SI joint pain (Acute) Sacroiliitis (Acute) Hypoxemia (Chronic) BETSY (obstructive sleep apnea) (Acute) Spinal stenosis, lumbar region with neurogenic claudication (Acute) Pulmonary hypertension (Chronic) Extrapyramidal and movement disorder (Chronic) Medical History Abdominal pain Acute on chronic diastolic CHF (congestive heart failure) Arthritis Atrial fibrillation Back pain Bipolar disorder Stable as of 09/29/09 Bladder pain (09/29/09) Borderline personality disorder Burning pain (09/29/09) in suprapubic area relieved only slightly by voiding. Daily flare-ups CHF (congestive heart failure) Chronic back pain Chronic kidney disease, stage 3 Chronic pain Chronic right SI joint pain Colitis COPD (chronic obstructive pulmonary disease) Degenerative joint disease Depression Stable as of 09/29/09 Dizzy spells Dysuria Endometriosis Fibromyalgia GERD (gastroesophageal reflux disease) Headache Hypertension Hypoxemia Incomplete bladder emptying (01/08/10) Interstitial cystitis (09/29/09) Diagnosed 20+ years ago Knee joint effusion Knee osteoarthritis Left knee pain Left leg pain Low back pain Menopausal disorder Morbid obesity Nicotine dependence, cigarettes, uncomplicated Nocturia (09/29/09) 2-3X BETSY (obstructive sleep apnea) Pain, joint, ankle, right Paroxysmal atrial fibrillation with RVR Pelvic pain Protein malnutrition Pulmonary hypertension Right leg pain Sacroiliitis Suicidal ideation Suprapubic abdominal pain (09/29/09) Tremor Unspecified symptom associated with female genital organs Urgency of urination (09/29/09) Urinary frequency (09/29/09) every hour Venous insufficiency Surgical History History of back surgery (~10/05/17) Dr. Vidales History of biopsy of bladder (10/07/09) History of bladder surgery (~12/2009) Dr. Hernandez - Bladder pacemaker, to help with bladder urgency History of delivery 1 History of colonoscopy (~03/2012) Next due 2021 History of cystoscopy (10/07/09) with hydrodistention History of hysterectomy (~1989) History of right knee joint replacement History of surgery Placement of permanent sacral nerve stimulator Hx of tonsillectomy Family History Family/Other Alcoholism Depression Menopausal disorder Chronic back pain GERD (gastroesophageal reflux disease) Venous insufficiency Plantar fasciitis, right Interstitial cystitis Bipolar II disorder Paternal Grandmother Father Depression Other Hypertension Social History (Updated 02/03/22 @ 11:05 by Paulina Amor, RN) marital status: single education level: high school physical activity: none smoking status: Former smoker quit date: 08/08/17 pack-years: 50 alcohol intake frequency: former alcohol drinker substance use type: does not use seatbelt use: always MEDS/ALLERGIES Home Medications and Allergies Home Medications Medication Instructions Recorded Confirmed Type pregabalin 150 mg capsule 150 mg PO TID 12/20/18 03/06/22 History diltiazem HCl 360 mg capsule,24 180 mg PO BID 10/15/20 03/06/22 History hr,extended release albuterol sulfate 2.5 mg (3 mL) inhalation PRN 02/16/21 03/06/22 Rx Shortness Of Breath #180 mL lorazepam 0.5 mg tablet See Rx Instructions .Route 12/24/21 03/06/22 Rx .COMPLEX #35 tabs aripiprazole 5 mg tablet See Rx Instructions .Route 02/02/22 03/06/22 Rx .COMPLEX #15 tabs benztropine 0.5 mg tablet 0.5 mg PO QHS #30 tabs 02/02/22 03/06/22 Rx doxepin 25 mg capsule 25 mg PO QHS #30 caps 02/02/22 03/06/22 Rx lamotrigine 100 mg tablet 50 mg PO QDAY 30 days #15 tabs 02/02/22 03/06/22 Rx apixaban 5 mg tablet (Eliquis) 1 tab PO BID 03/06/22 03/06/22 History budesonide-formoterol HFA 80 2 puff inhalation BID 03/06/22 03/06/22 History mcg-4.5 mcg/actuation aerosol inhaler (Symbicort) cholecalciferol (vitamin D3) 50 1 cap PO QAM 03/06/22 03/06/22 History mcg (2,000 unit) capsule duloxetine 60 mg capsule,delayed 60 mg PO BID 03/06/22 03/06/22 History release fluticasone 250 mcg-salmeterol 50 1 puff inhalation BID 03/06/22 03/06/22 History mcg/dose blistr powdr for inhalation (Advair Diskus) metoprolol succinate 100 mg 0.5 tab PO BID 03/06/22 03/06/22 History tablet,extended release 24 hr propafenone 150 mg tablet 2 tab PO BID 03/06/22 03/06/22 History spironolactone 25 mg tablet 1 tab PO QDAY 03/06/22 03/06/22 History torsemide 10 mg tablet 2 tab PO BID 03/06/22 03/06/22 History Allergies Allergy/AdvReac Type Severity Reaction Status Date / Time fluoxetine [From Prozac] AdvReac Mild Agitated Verified 03/06/22 17:52 prednisone AdvReac Mild Agitated Verified 03/06/22 17:52 tramadol AdvReac Mild Wheezing Verified 03/06/22 17:52 EXAM Constitutional Vitals: Temp Pulse Resp BP Pulse Ox O2 Del Method O2 Flow Rate 36.6 C 62 24 H 131/96 94 3 03/06/22 17:49 03/06/22 20:46 03/06/22 17:49 03/06/22 20:46 03/06/22 20:46 03/06/22 20:20 03/06/22 20:32 General appearance: cooperative and no acute distress Head Head exam: Present atraumatic and normocephalic Eye Eye exam: Present EOMI and PERRL ENT ENT exam: Present mucous membranes moist, normal exam and normal external ear exam Additional comments: Nasal cannula in place Neck Neck exam: Present normal inspection; Absent lymphadenopathy, tenderness or thyromegaly Respiratory Respiratory exam: Absent accessory muscle use, respiratory distress or wheezes Cardiovascular Cardiovascular exam: Present irregular rhythm; Absent JVD GI/Abdominal GI/Abdominal exam: Present normal bowel sounds and soft; Absent organomegaly or tenderness Extremities Exam Extremities exam: Present full ROM, normal capillary refill and normal inspection; Absent tenderness Additional comments: Left lateral chest wall tenderness to palpation Neurological Exam Neurological exam: Present alert, CN II-XII intact and oriented X3; Absent motor sensory deficit Psychiatric Psychiatric exam: Present normal affect and normal mood; Absent anxious or depressed Skin Skin exam: Present dry and intact DATA Data Completed and Pending Labs: Labs from last 24 hours 03/06/22 03/06/22 03/06/22 19:56 19:27 19:14 WBC 10.2 RBC 3.34 L Hgb 9.9 L Hct 32.8 L POC Hct 31.0 L MCV 98.2 MCH 29.6 MCHC 30.2 L RDW 13.8 Plt Count 231 MPV 10.3 Immature Gran % (Auto) 0.5 Neut % (Auto) 63.3 Lymph % (Auto) 21.6 Lake % (Auto) 12.9 H Eos % (Auto) 1.1 Baso % (Auto) 0.6 Lymph # (Auto) 2.20 [place] # (Auto) 1.31 H Eos # (Auto) 0.11 Baso # (Auto) 0.06 Immature Gran # 0.05 Absolute Neutrophils 6.50 POC Sodium 136 POC Potassium 4.2 POC Chloride 96 POC Total CO2 36.0 H POC BUN 22 H POC Creatinine 1.8 H POC Glucose 126 H POC WB Ioniz Calcium 1.11 L Urine Color Yellow Urine Appearance Cloudy A Urine pH 6.0 Ur Specific [place] 1.025 Urine Protein 100 mg/dl A Urine Glucose (UA) Negative Urine Ketones Negative Urine Occult Blood Moderate A Urine Nitrate Positive A Urine Bilirubin Negative Urine Urobilinogen Normal Ur Leukocyte Esterase Large A Urine RBC 59 H Urine WBC > 182 H Ur Squamous Epith Cells 0 Urine Bacteria Mod A Ur Culture Indicated? yes A/P Assessment and plan (1) Multiple rib fractures: Status: Acute Qualifiers: Encounter type: initial encounter Fracture type: closed Laterality: left Qualified Code(s): S22.42XA - Multiple fractures of ribs, left side, initial encounter for closed fracture (2) Urinary tract infection: Status: Acute (3) Depression: Status: Chronic Comment: Stable as of 09/29/09 (4) Osteoarthritis of knees, bilateral: Status: Acute (5) Hypertension: Status: Chronic (6) Bipolar II disorder: Status: Chronic Comment: current episode depressed - mild (7) COPD (chronic obstructive pulmonary disease): Status: Chronic Qualifiers: COPD type: unspecified COPD Qualified Code(s): J44.9 - Chronic obstructive pulmonary disease, unspecified (8) Chronic kidney disease, stage 3: Status: Chronic (9) CHF (congestive heart failure): Status: Chronic (10) Paroxysmal atrial fibrillation with RVR: Status: Chronic Narrative A/P Narrative: Assessment and Plans: 1. Frequent falls with left multiple ribs fractures, no complications such as pneumothorax/hemopneumothorax: Inpatient med surg Tylenol Ibuprofen Oxycodone Dilaudid IV Incentive spirometry q1HWA Supplemental oxygen applications managermanager file therapy Occupational therapy 2. Urinary tract infection: Blood culture Urine culture cbc w/ auto diff in the morning to trend WBC Rocephin Tylenol 3. Atrial fibrillation, s/p pacemaker placement: Telemetry Hold Eliquis Metoprolol ER Diltiazem ER Propafenone 4. COPD: Supplemental oxygen therapy (baseline:2L/min) Bronchodilators Advair Diskus Symbicort 5. Diastolic CHF, stable: Supplemental oxygen therapy (baseline:2L/min) Metoprolol ER Torsemide Aldactone 6. Chronic kidney disease stage III: Avoid nephrotoxic agents Saline lock Repeat CMP in the morning to trend kidney functions 7. History of essential hypertensions: Patient is currently normotensive Metoprolol ER Diltiazem ER Torsemide Aldactone 8. History of bipolar depression: Duloxetine Doxepin Aripiprazole 9. History of bilateral knee osteoarthritis, status post right knee total replacement: Continue pain management, see #1 Physical therapy Occupational therapy GI ppx: not currently indicated DVT ppx: SCDs Code status: Full Prognosis: Stable Disposition: inpatient med surg telemetry; PT OT Time Spent With Patient Time: Total time spent is greater than 50% in coordination of care (as documented) at patient's floor/unit and/or counseling patient: Total time spent with greater than 50% in coordination of care (as documented) at patient's floor/unit and/or counseling patient:: 50 - 70 minutes QUALITY Stroke Symptom Onset Unknown: No
[2022-03-06] MEDS ORDERED: IPRATROPIUM/ALBUTEROL 3 ML AMPUL.NEB NEB PRN (21:41)
[2022-03-06] MEDS ORDERED: ONDANSETRON 4 MG/2 ML VIAL IV PRN (21:41)
[2022-03-06] MEDS ORDERED: METOPROLOL TARTRATE 5 MG/5 ML VIAL IV PRN (21:41)
[2022-03-06] MEDS ORDERED: ACETAMINOPHEN 325 MG TABLET PO PRN (21:41)
[2022-03-06] MEDS ORDERED: traZODone HCL 50 MG TABLET PO PRN (21:41)
[2022-03-06] MEDS ORDERED: HYDROmorphone 0.5 MG/0.5 ML SYRINGE IV PRN (21:41)
[2022-03-06] MEDS: ARIPIPRAZOLE 5 MG TABLET PO SCH (22:10)
[2022-03-06] MEDS: 0.9 % SODIUM CHLORIDE 10 ML SYRINGE IV SCH (22:13)
[2022-03-07] MEDS: oxyCODONE HCL 5 MG TABLET PO PRN ×2 (03:46→14:55)
[2022-03-07] MEDS: 0.9 % SODIUM CHLORIDE 10 ML SYRINGE IV SCH ×3 (06:03→22:43)
[2022-03-07 06:44] LABS: Basophils # (Auto) 0.07 K/mcL (0.00-0.30); Basophils % (Auto) 0.8 % (0.0-2.0); Eosinophils # (Auto) 0.15 K/mcL (0.00-0.70); Eosinophils % (Auto) 1.8 % (0.0-7.0); Hematocrit 32.7 % (34.1-44.9); Hemoglobin 9.8 g/dL (11.2-15.7); Lymphocytes # (Auto) 1.95 K/mcL (1.50-4.80); Lymphocytes % (Auto) 23.2 % (15.5-49.0); Mean Cell Volume 98.2 fL (80.0-100.0); Mean Platelet Volume 10.2 fL (7.4-10.4); Monocytes # (Auto) 1.06 K/mcL (0.10-0.90); Monocytes % (Auto) 12.6 % (1.0-12.0); Neutrophils % (Auto) 61.1 % (38.0-78.0); Platelet Count 223 K/mcL (140-440); RBC 3.33 M/mcL (3.59-5.38); Red Cell Distribution Width 13.6 % (11.5-14.5); WBC 8.4 K/mcL (4.5-11.0)
[2022-03-07 07:21] LABS: ALT/SGPT 6 U/L (<40); AST/SGOT 13 U/L (<32); Albumin/Globulin Ratio 0.9 (1.0-2.3); Alkaline Phosphatase 78 U/L (39-117); Bilirubin,Total 0.2 mg/dL (0.1-1.0); Blood Urea Nitrogen 15 mg/dL (8-23); Carbon Dioxide 32 mmol/L (22-30); Chloride 95 mmol/L (96-108); Globulin 3.5 gm/dL (2.2-3.7); Glomerular Filtration Rate 33; Glucose 104 mg/dL (70-105)
[2022-03-07 07:22] LABS: Phosphorous 4.2 mg/dL (2.5-4.5)
[2022-03-07] MEDS: PROPAFENONE 150 MG TABLET PO SCH ×2 (08:30→21:49)
[2022-03-07] MEDS: DULoxetine 30 MG CAPSULE PO SCH ×2 (08:31→21:50)
[2022-03-07] MEDS: TORSEMIDE 10 MG TABLET PO SCH ×2 (08:31→21:49)
[2022-03-07] MEDS: VITAMIN D3 25 MCG TABLET PO SCH (08:31)
[2022-03-07] MEDS: lamoTRIgine 100 MG TABLET PO SCH (08:31)
[2022-03-07] MEDS: DILTIAZEM 180 MG CAP.XL.24H PO SCH ×2 (08:32→21:50)
[2022-03-07] MEDS: DOCUSATE SODIUM 100 MG CAPSULE PO SCH ×3 (08:32→22:42)
[2022-03-07] MEDS: cefTRIAXone 1 GM VIAL IV SCH (08:32)
[2022-03-07] MEDS: PREGABALIN 150 MG CAPSULE PO SCH ×3 (08:32→21:50)
[2022-03-07] MEDS: METOPROLOL SUCCINATE 50 MG TAB.XL.24H PO SCH ×2 (08:32→21:50)
[2022-03-07] MEDS: SPIRONOLACTONE 25 MG TABLET PO SCH (08:32)
[2022-03-07] MEDS: IPRATROPIUM/ALBUTEROL SULFATE 1 PUFF INHALER INH SCH ×4 (09:21→22:42)
--- NOTE | 2022-03-07 09:26 | XRay Report ---
HISTORY: History fell with left rib injuries FINDINGS: There are acute fractures posterolaterally in the fourth, fifth, sixth and seventh ribs. Adjacent to this is mild pleural thickening. There is no pneumothorax or pleural effusion. Lung volumes are small due to suboptimal inspiration. Heart size is normal. There is a dual-chamber pacemaker. Severe degenerative disc disease is present at L1-2 and there has been prior fusion at L3-4. IMPRESSION: Fractured left fourth through seventh ribs Interpreted and Authenticated by: Ryley Pop 03/07/22
--- NOTE | 2022-03-07 09:29 | Cat Scan Report ---
History: Trauma with head injury TECHNIQUE: The brain was imaged without contrast in axial plane at 2.5 mm intervals. Sagittal and coronal reformats were created. The radiation exposure was limited using dose reduction technology. FINDINGS: The brain is normally developed. There is no hemorrhage, edema, infarct or mass effect. The ventricles and cisterns are normal. There is no abnormal extra-axial fluid collection. Bone windows show no skull fracture. Minor mucosal thickening is seen along the kim of a couple anterior ethmoid air cells bilaterally. IMPRESSION: Normal brain Interpreted and Authenticated by: Ryley Pop 03/07/22
--- NOTE | 2022-03-07 09:30 | XRay Report ---
HISTORY: Fell, left knee injury FINDINGS: No fracture or dislocation are present. There is severe joint space narrowing in the medial joint compartment. There are spurs forming along the margins of all three compartments. Very small joint effusion is present. There is no radiopaque foreign body. Comparison with the prior exam done on 09/09/20 shows there has been significant progression of the arthritis in the medial joint space. IMPRESSION: Progressively worsening osteoarthritis No fracture Interpreted and Authenticated by: Ryley Pop 03/07/22
--- NOTE | 2022-03-07 09:32 | XRay Report ---
HISTORY: Fell, left lower leg injury FINDINGS: No fracture or dislocation are present. Osteoarthritis is present in the knee. Small calcified phleboliths are present anteriorly in the mid castillo. IMPRESSION: No fracture Interpreted and Authenticated by: Ryley Pop 03/07/22
--- NOTE | 2022-03-07 10:49 | Internal Med Progress Note ---
SUBJECTIVE Subjective Patient information: Note initiated : 03/07/22 at 10:47 am Service Date, if different from initiated Date: [] Patient: Santo Morocho 66 y/o F admitted on 03/06/22 for rib pain. Chief Complaint: [] Interval history: Ms. Morocho is a 66 year old F history of atrial fibrillation's on Eliquis status post pacemaker placement, COPD on home oxygen therapy baseline 2 L/min, congestive heart failure, chronic kidney disease stage III, essential hypertensions, bipolar depressions, knees osteoarthritis status post right knee replacement, presenting with frequent falls. It was reported that patient's fell around 2 AM this morning and then fell again in the afternoon. The first episode was being described as the patient's leg gave out while she was in the bathroom and she landed on her left side. The second fall episode was not being described in much details by either the family or the at the bedside. Patient's denies any chest pain or palpitations or shortness of breath at either incidents. There was also no reported loss of consciousness. Patient is currently complaining of left lateral chest pain, 8 out of 10 in severity, constant, and unable to describe the nature of the pain. CT of the head without contrast did not show any intracranial hemorrhage or any other acute intracranial pathologies. Chest x-ray preliminary result showing at least 2 left-sided rib fractures without complications such as pneumothorax or hemothorax. Labs significant for UA showing the presence of urinary tract infections. H&H stable at the baseline. Admission request was called for symptoms controlled for rib fractures as well as treatment for urinary tract infections. In additions, physical therapy Occupational Therapy evaluations and treatments for placement pending also required. 03/07: No major overnight events. Afebrile overnight. Currently on 3L/min oxygen. Cultures no growth to date. Patient denies any chest pain or shortness of breath. Denies any fever, chills, or sweating. Denies dysuria. Occupational therapist recommend senior living placement. Continue narcotics as needed for pain control. Continue Rocephin for urinary tract infections. Pending senior living placement. Constitutional Vitals: Vital Signs Temp Pulse Resp BP Pulse Ox O2 Del Method O2 Flow Rate 37.2 C 62 18 137/91 96 2 03/07/22 08:00 03/07/22 08:00 03/07/22 08:00 03/07/22 08:00 03/07/22 08:00 03/07/22 08:00 03/07/22 08:00 Period Temp Pulse Resp BP Sys/Guzmán Pulse Ox O2 Del Method O2 Flow Rate Last 24 Hr 36.4 C-37.2 C 60-82 16-24 108-139/50-96 94-98 Nasal Cannula- Nasal Cannula 2-3 Intake and Output 03/06/22 03/07/22 03/07/22 21:59 05:59 13:59 Intake Total 450 1000 720 Balance 450 1000 720 Weight 131.814 kg Intake & Output: Intake & Output 03/06/22 03/07/22 03/07/22 21:59 05:59 13:59 Intake Total 450 1000 720 Balance 450 1000 720 Weight 131.814 kg Intake: IV 450 600 Sodium Chloride 0.9% 1,000 ml @ 400 600 Wide Open IV BOLUS ONE Rx#: [id number] Rocephin 2 gm In Dextrose 5% in 50 Water 50 ml @ 100 mls/hr IV ONCE ONE Rx#:[id number] Oral 400 720 Other: Meal Breakfast Percent of Meal Consumed 100% Feeding Ability Assist with Tray Set Up # Voids 1 General appearance: cooperative, morbidly obese and no acute distress Exam: lethargic Head Head exam: Present atraumatic and normal inspection Eye Eye exam: Present normal appearance ENT ENT exam: Present mucous membranes moist, normal exam and normal external ear exam Additional comments: Nasal cannula in place Neck Neck exam: Present normal inspection Respiratory Respiratory exam: Present normal respiratory exam Cardiovascular Cardiovascular exam: Present irregular rhythm Additional comments: pacemaker in place Left sided chest wall tenderness to palpation GI/Abdominal GI/Abdominal exam: Present normal bowel sounds Back Exam Back exam: Present normal inspection Neurological Exam Neurological exam: Present alert and oriented X3 Skin Skin exam: Present intact and warm OBJ DATA Labs CBC & Chem 7: 03/07/22 05:28 03/07/22 05:28 Labs: Abnormal Lab Results 03/07/22 03/07/22 03/06/22 05:28 05:28 19:56 RBC 3.33 L Hgb 9.8 L Hct 32.7 L POC Hct MCHC 30.0 L Coffey % (Auto) 12.6 H Coffey # (Auto) 1.06 H Chloride 95 L Carbon Dioxide 32 H POC Total CO2 POC BUN Creatinine 1.6 H POC Creatinine POC Glucose POC WB Ioniz Calcium Albumin 3.0 L Albumin/Globulin Ratio 0.9 L Urine Appearance Cloudy A Urine Protein 100 mg/dl A Urine Occult Blood Moderate A Urine Nitrate Positive A Ur Leukocyte Esterase Large A Urine RBC 59 H Urine WBC > 182 H Urine Bacteria Mod A 03/06/22 03/06/22 19:27 19:14 RBC 3.34 L Hgb 9.9 L Hct 32.8 L POC Hct 31.0 L MCHC 30.2 L Coffey % (Auto) 12.9 H Coffey # (Auto) 1.31 H Chloride Carbon Dioxide POC Total CO2 36.0 H POC BUN 22 H Creatinine POC Creatinine 1.8 H POC Glucose 126 H POC WB Ioniz Calcium 1.11 L Albumin Albumin/Globulin Ratio Urine Appearance Urine Protein Urine Occult Blood Urine Nitrate Ur Leukocyte Esterase Urine RBC Urine WBC Urine Bacteria Meds: Medications Acetaminophen (Acetaminophen 325 Mg Tablet) 650 mg PO Q6HP PRN; Protocol PRN Reason: Per Pain Protocol/Fever > 101 Albuterol Sulfate (Albuterol Sulfate 2.5 Mg/3 Ml Nebulizer) 2.5 mg INH Q4HP PRN PRN Reason: Shortness Of Breath Albuterol/Ipratropium (Ipratropium/Albuterol 3 Ml Ampul.Neb) 3 ml NEB Q4HRT PRN PRN Reason: Wheezing Albuterol/Ipratropium (Ipratropium/Albuterol Sulfate 1 Puff Inhaler) 2 puff INH QID [facility] Benztropine Mesylate (Benztropine 1 Mg Tablet) 0.5 mg PO QHS [facility] Ceftriaxone Sodium (Ceftriaxone 1 Gm Vial) 1 gm IV Q24H [facility] Last Admin: 03/07/22 08:32 Dose: 1 gm Diltiazem HCl (Diltiazem 180 Mg Cap.Xl.24h) 180 mg PO BID [facility] Last Admin: 03/07/22 08:32 Dose: 180 mg Docusate Sodium (Docusate Sodium 100 Mg Capsule) 100 mg PO BID [facility] Last Admin: 03/07/22 08:32 Dose: 100 mg Doxepin HCl (Doxepin 25 Mg Capsule) 25 mg PO QHS [facility] Duloxetine HCl (Duloxetine 30 Mg Capsule) 60 mg PO BID [facility] Last Admin: 03/07/22 08:31 Dose: 60 mg Hydromorphone HCl (Hydromorphone 0.5 Mg/0.5 Ml Syringe) 0.5 mg IV Q2HP PRN; Protocol PRN Reason: Per Pain Protocol Last Admin: 03/07/22 08:39 Dose: 0.5 mg Ibuprofen (Ibuprofen 600 Mg Tablet) 600 mg PO QIDP PRN; Protocol PRN Reason: Per Pain Protocol/Fever > 101 Lamotrigine (Lamotrigine 100 Mg Tablet) 50 mg PO QDAY [facility] Last Admin: 03/07/22 08:31 Dose: 50 mg Lorazepam (Lorazepam 0.5 Mg Tablet) 0.5 mg PO BIDP PRN PRN Reason: Anxiety Metoprolol Succinate (Metoprolol Succinate 50 Mg Tab.Xl.24h) 50 mg PO BID [facility] Last Admin: 03/07/22 08:32 Dose: 50 mg Metoprolol Tartrate (Metoprolol Tartrate 5 Mg/5 Ml Vial) 5 mg IV Q5M PRN PRN Reason: Tachyarrhythmias Ondansetron HCl (Ondansetron 4 Mg/2 Ml Vial) 4 mg IV Q6HP PRN PRN Reason: Nausea And Vomiting Oxycodone HCl (Oxycodone Hcl 5 Mg Tablet) 10 mg PO Q4HP PRN; Protocol PRN Reason: Per Pain Protocol Last Admin: 03/07/22 03:46 Dose: 10 mg Budesonide- Formoterol [ Symbicort] 80-4.5 Mcg 2 dose INH BID [facility] Pregabalin (Pregabalin 150 Mg Capsule) 150 mg PO TID [facility] Last Admin: 03/07/22 08:32 Dose: 150 mg Propafenone HCl (Propafenone 150 Mg Tablet) 300 mg PO BID [facility] Last Admin: 03/07/22 08:30 Dose: 300 mg Fluticasone/Salmeterol (Fluticasone/Salmeterol 250/50 Inhaler #14) 1 puff INH BID [facility] Senna (Sennosides 1 Tablet) 2 tab PO HS [facility] Sodium Chloride (0.9 % Sodium Chloride 10 Ml Syringe) 10 ml IV Q8 [facility] Last Admin: 03/07/22 06:03 Dose: Not Given Spironolactone (Spironolactone 25 Mg Tablet) 25 mg PO QDAY [facility] Last Admin: 03/07/22 08:32 Dose: 25 mg Torsemide (Torsemide 10 Mg Tablet) 20 mg PO BID [facility] Last Admin: 03/07/22 08:31 Dose: 20 mg Trazodone HCl (Trazodone Hcl 50 Mg Tablet) 25 mg PO HSP PRN PRN Reason: Insomnia Vitamin D (Vitamin D3 25 Mcg Tablet) 50 mcg PO QAM [facility] Last Admin: 03/07/22 08:31 Dose: 50 mcg A/P Assessment and plan (1) Multiple rib fractures: Status: Acute Qualifiers: Encounter type: initial encounter Fracture type: closed Laterality: left Qualified Code(s): S22.42XA - Multiple fractures of ribs, left side, initial encounter for closed fracture (2) Urinary tract infection: Status: Acute (3) Depression: Status: Chronic Comment: Stable as of 09/29/09 (4) Osteoarthritis of knees, bilateral: Status: Acute (5) Hypertension: Status: Chronic (6) Bipolar II disorder: Status: Chronic Comment: current episode depressed - mild (7) COPD (chronic obstructive pulmonary disease): Status: Chronic Qualifiers: COPD type: unspecified COPD Qualified Code(s): J44.9 - Chronic obs tructive pulmonary disease, unspecified (8) Chronic kidney disease, stage 3: Status: Chronic (9) CHF (congestive heart failure): Status: Chronic (10) Paroxysmal atrial fibrillation with RVR: Status: Chronic Narrative A/P Narrative: Assessment and Plans: 1. 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 SNF placement 2. Urinary tract infection: Blood culture, no growth to date Urine culture, no growth to date cbc w/ auto diff in the morning to trend WBC Rocephin Tylenol 3. Atrial fibrillation, s/p pacemaker placement: Okay to d/c media monitor Hold Eliquis Metoprolol ER Diltiazem ER Propafenone 4. COPD: Supplemental oxygen therapy (baseline:2L/min) Bronchodilators Advair Diskus Symbicort 5. Diastolic CHF, stable: Supplemental oxygen therapy (baseline:2L/min) Metoprolol ER Torsemide Aldactone 6. Chronic kidney disease stage III: Avoid nephrotoxic agents Saline lock Repeat CMP in the morning to trend kidney functions 7. History of essential hypertensions: Patient is currently normotensive Metoprolol ER Diltiazem ER Torsemide Aldactone 8. History of bipolar depression: Duloxetine Doxepin Aripiprazole 9. History of bilateral knee osteoarthritis, status post right knee total replacement: Continue pain management, see #1 Physical therapy Occupational therapy GI ppx: not currently indicated DVT ppx: SCDs Code status: Full Prognosis: Stable Disposition: inpatient med surg; pending SNF placement Time Spent With Patient Time: Total time spent is greater than 50% in coordination of care (as documented) at patient's floor/unit and/or counseling patient: Total time spent with greater than 50% in coordination of care (as documented) at patient's floor/unit and/or counseling patient:: 50 - 70 minutes QUALITY Stroke Symptom Onset Unknown: No VTE Deep Vein Thrombosis/Pulmonary Embolism Present on Admission: No
[2022-03-07] MEDS ORDERED: HYDROmorphone 0.5 MG/0.5 ML SYRINGE IV PRN (10:50)
[2022-03-07] MEDS: BUDESONIDE FORMOTEROL INH SCH ×2 (12:42→22:42)
[2022-03-07] MEDS: FLUTICASONE/SALMETEROL 250/50 INHALER #14 INH SCH ×2 (12:42→22:42)
--- NOTE | 2022-03-07 18:11 | EKG ---
[facility] Test Date: 2022-03-06 Pat Name: Santo Morocho Department: ED Room: Gender: Female [employer]: : [id number] Requested By: Hernandez Ashraf Order Number: [id number] Reading MD: Andrés Shelton Measurements Intervals Pinson Rate: 60 P: MT: 233 QRS: 30 QRSD: 121 T: 24 QT: 443 QTc: 443 Interpretive Statements Atrial-paced complexes Prolonged MT interval Electronically Signed On 03-07-2022 18:11:09 PDT by Andrés Shelton /[facility] [place]/M0/[id number]
[2022-03-07] MEDS ORDERED: cefTRIAXone 1 GM in DEXTROSE 5% IN WATER 50 ML IV SCH (21:15)
[2022-03-07] MEDS: DOXEPIN 25 MG CAPSULE PO SCH (21:50)
[2022-03-07] MEDS: SENNOSIDES 1 TABLET PO SCH ×2 (21:50→22:42)
[2022-03-07] MEDS: ARIPIPRAZOLE 5 MG TABLET PO SCH (21:50)
[2022-03-07] MEDS: BENZTROPINE 1 MG TABLET PO SCH (21:50)
[2022-03-08] MEDS: 0.9 % SODIUM CHLORIDE 10 ML SYRINGE IV SCH ×3 (06:10→21:36)
[2022-03-08 06:57] LABS: Basophils # (Auto) 0.09 K/mcL (0.00-0.30); Eosinophils # (Auto) 0.32 K/mcL (0.00-0.70); Eosinophils % (Auto) 3.5 % (0.0-7.0); Hematocrit 32.9 % (34.1-44.9); Hemoglobin 9.9 g/dL (11.2-15.7); Lymphocytes # (Auto) 1.72 K/mcL (1.50-4.80); Mean Cell Volume 98.5 fL (80.0-100.0); Mean Corpuscular HGB Conc 30.1 g/dL (31.0-36.0); Mean Platelet Volume 10.3 fL (7.4-10.4); Monocytes # (Auto) 1.29 K/mcL (0.10-0.90); Monocytes % (Auto) 14.2 % (1.0-12.0); Platelet Count 227 K/mcL (140-440); RBC 3.34 M/mcL (3.59-5.38); Red Cell Distribution Width 13.3 % (11.5-14.5); WBC 9.1 K/mcL (4.5-11.0)
[2022-03-08 07:31] LABS: Phosphorous 3.5 mg/dL (2.5-4.5)
[2022-03-08 07:52] LABS: ALT/SGPT 8 U/L (<40); AST/SGOT 14 U/L (<32); Albumin/Globulin Ratio 0.8 (1.0-2.3); Alkaline Phosphatase 87 U/L (39-117); Bilirubin,Total 0.2 mg/dL (0.1-1.0); Blood Urea Nitrogen 17 mg/dL (8-23); Carbon Dioxide 32 mmol/L (22-30); Chloride 95 mmol/L (96-108); Globulin 3.6 gm/dL (2.2-3.7); Glomerular Filtration Rate 29; Glucose 113 mg/dL (70-105)
--- NOTE | 2022-03-08 09:26 | Internal Med Progress Note ---
SUBJECTIVE Subjective Patient information: Note initiated : 03/08/22 at 9:23 am Service Date, if different from initiated Date: [] Patient: Santo Morocho 66 y/o F admitted on 03/06/22 for rib pain. Chief Complaint: [] Interval history: Ms. Morocho is a 66 year old F history of atrial fibrillation's on Eliquis status post pacemaker placement, COPD on home oxygen therapy baseline 2 L/min, congestive heart failure, chronic kidney disease stage III, essential hypertensions, bipolar depressions, knees osteoarthritis status post right knee replacement, presenting with frequent falls. It was reported that patient's fell around 2 AM this morning and then fell again in the afternoon. The first episode was being described as the patient's leg gave out while she was in the bathroom and she landed on her left side. The second fall episode was not being described in much details by either the family or the at the bedside. Patient's denies any chest pain or palpitations or shortness of breath at either incidents. There was also no reported loss of consciousness. Patient is currently complaining of left lateral chest pain, 8 out of 10 in severity, constant, and unable to describe the nature of the pain. CT of the head without contrast did not show any intracranial hemorrhage or any other acute intracranial pathologies. Chest x-ray preliminary result showing at least 2 left-sided rib fractures without complications such as pneumothorax or hemothorax. Labs significant for UA showing the presence of urinary tract infections. H&H stable at the baseline. Admission request was called for symptoms controlled for rib fractures as well as treatment for urinary tract infections. In additions, physical therapy Occupational Therapy evaluations and treatments for placement pending also required. 03/07: No major overnight events. Afebrile overnight. Currently on 3L/min oxygen. Cultures no growth to date. Patient denies any chest pain or shortness of breath. Denies any fever, chills, or sweating. Denies dysuria. Occupational therapist recommend senior living placement. Continue narcotics as needed for pain control. Continue Rocephin for urinary tract infections. Pending senior living placement. 03/08: No major overnight events. Afebrile overnight. Currently on 3L/min oxygen. Urine culture: k pneumoniae. c/o left sided chest wall pain. Denies shortness of breath. Denies any fever, chills, or sweating. Denies dysuria. Continue narcotics as needed for pain control. Continue Rocephin for urinary tract infections. Pending SNF placement. Constitutional Vitals: Vital Signs Temp Pulse Resp BP Pulse Ox O2 Del Method O2 Flow Rate 36.7 C 63 18 118/49 93 3 03/08/22 06:49 03/08/22 06:49 03/08/22 06:49 03/08/22 06:49 03/08/22 06:49 03/08/22 06:49 03/08/22 06:49 Period Temp Pulse Resp BP Sys/Guzmán Pulse Ox O2 Del Method O2 Flow Rate Last 24 Hr 36.4 C-37.3 C 52-74 12-18 114-132/49-75 92-94 Nasal Cannula- Nasal Cannula 2-3 Intake and Output 03/07/22 03/08/22 03/08/22 21:59 05:59 13:59 Intake Total 480 200 120 Output Total 275 1 400 Balance 205 199 -280 Weight 133.447 kg Intake & Output: Intake & Output 03/07/22 03/08/22 03/08/22 21:59 05:59 13:59 Intake Total 480 200 120 Output Total 275 1 400 Balance 205 199 -280 Weight 133.447 kg Intake: Oral 480 200 120 Output: Void Amount 275 400 # of times incontinent of urine 1 Other: Meal Breakfast Percent of Meal Consumed 100% Feeding Ability Assist with Tray Set Up Urine Appearance Cloudy Clear Sediment Urine Color Light Massiel Dark Yellow Urine Odor Strong Exam: lethargic Head Head exam: Present atraumatic and normal inspection Eye Eye exam: Present normal appearance ENT ENT exam: Present mucous membranes moist, normal exam and normal external ear exam Additional comments: Nasal cannula in place Neck Neck exam: Present normal inspection Respiratory Respiratory exam: Present normal respiratory exam Cardiovascular Cardiovascular exam: Present irregular rhythm Additional comments: Left sided lateral chest wall tenderness to palpation Pacemaker in place GI/Abdominal GI/Abdominal exam: Present normal bowel sounds Back Exam Back exam: Present normal inspection Neurological Exam Neurological exam: Present alert and oriented X3 Skin Skin exam: Present intact and warm OBJ DATA Labs CBC & Chem 7: 03/08/22 05:56 03/08/22 05:56 Labs: Abnormal Lab Results 03/08/22 03/08/22 03/07/22 05:56 05:56 05:28 RBC 3.34 L Hgb 9.9 L Hct 32.9 L POC Hct MCHC 30.1 L Barnwell % (Auto) 14.2 H Barnwell # (Auto) 1.29 H Chloride 95 L 95 L Carbon Dioxide 32 H 32 H POC Total CO2 POC BUN Creatinine 1.8 H 1.6 H POC Creatinine Glucose 113 H POC Glucose POC WB Ioniz Calcium Albumin 3.0 L 3.0 L Albumin/Globulin Ratio 0.8 L 0.9 L Urine Appearance Urine Protein Urine Occult Blood Urine Nitrate Ur Leukocyte Esterase Urine RBC Urine WBC Urine Bacteria 03/07/22 03/06/22 03/06/22 05:28 19:56 19:27 RBC 3.33 L Hgb 9.8 L Hct 32.7 L POC Hct 31.0 L MCHC 30.0 L Barnwell % (Auto) 12.6 H Barnwell # (Auto) 1.06 H Chloride Carbon Dioxide POC Total CO2 36.0 H POC BUN 22 H Creatinine POC Creatinine 1.8 H Glucose POC Glucose 126 H POC WB Ioniz Calcium 1.11 L Albumin Albumin/Globulin Ratio Urine Appearance Cloudy A Urine Protein 100 mg/dl A Urine Occult Blood Moderate A Urine Nitrate Positive A Ur Leukocyte Esterase Large A Urine RBC 59 H Urine WBC > 182 H Urine Bacteria Mod A 03/06/22 19:14 RBC 3.34 L Hgb 9.9 L Hct 32.8 L POC Hct MCHC 30.2 L Barnwell % (Auto) 12.9 H Barnwell # (Auto) 1.31 H Chloride Carbon Dioxide POC Total CO2 POC BUN Creatinine POC Creatinine Glucose POC Glucose POC WB Ioniz Calcium Albumin Albumin/Globulin Ratio Urine Appearance Urine Protein Urine Occult Blood Urine Nitrate Ur Leukocyte Esterase Urine RBC Urine WBC Urine Bacteria Meds: Medications Acetaminophen (Acetaminophen 325 Mg Tablet) 650 mg PO Q6HP PRN; Protocol PRN Reason: Per Pain Protocol/Fever > 101 Albuterol Sulfate (Albuterol Sulfate 2.5 Mg/3 Ml Nebulizer) 2.5 mg INH Q4HP PRN PRN Reason: Shortness Of Breath Albuterol/Ipratropium (Ipratropium/Albuterol 3 Ml Ampul.Neb) 3 ml NEB Q4HRT PRN PRN Reason: Wheezing Albuterol/Ipratropium (Ipratropium/Albuterol Sulfate 1 Puff Inhaler) 2 puff INH QID [facility] Last Admin: 03/07/22 22:42 Dose: Not Given Benztropine Mesylate (Benztropine 1 Mg Tablet) 0.5 mg PO QHS [facility] Last Admin: 03/07/22 21:50 Dose: 0.5 mg Ceftriaxone Sodium (Ceftriaxone 1 Gm Vial) 1 gm IV Q24H [facility] Last Admin: 03/07/22 08:32 Dose: 1 gm Diltiazem HCl (Diltiazem 180 Mg Cap.Xl.24h) 180 mg PO BID [facility] Last Admin: 03/07/22 21:50 Dose: 180 mg Docusate Sodium (Docusate Sodium 100 Mg Capsule) 100 mg PO BID [facility] Last Admin: 03/07/22 22:42 Dose: Not Given Doxepin HCl (Doxepin 25 Mg Capsule) 25 mg PO QHS [facility] Last Admin: 03/07/22 21:50 Dose: 25 mg Duloxetine HCl (Duloxetine 30 Mg Capsule) 60 mg PO BID [facility] Last Admin: 03/07/22 21:50 Dose: 60 mg Hydromorphone HCl (Hydromorphone 0.5 Mg/0.5 Ml Syringe) 0.5 mg IV Q4HP PRN; Protocol PRN Reason: Per Pain Protocol Ibuprofen (Ibuprofen 600 Mg Tablet) 600 mg PO QIDP PRN; Protocol PRN Reason: Per Pain Protocol/Fever > 101 Lamotrigine (Lamotrigine 100 Mg Tablet) 50 mg PO QDAY [facility] Last Admin: 03/07/22 08:31 Dose: 50 mg Lorazepam (Lorazepam 0.5 Mg Tablet) 0.5 mg PO BIDP PRN PRN Reason: Anxiety Metoprolol Succinate (Metoprolol Succinate 50 Mg Tab.Xl.24h) 50 mg PO BID [facility] Last Admin: 03/07/22 21:50 Dose: 50 mg Metoprolol Tartrate (Metoprolol Tartrate 5 Mg/5 Ml Vial) 5 mg IV Q5M PRN PRN Reason: Tachyarrhythmias Ondansetron HCl (Ondansetron 4 Mg/2 Ml Vial) 4 mg IV Q6HP PRN PRN Reason: Nausea And Vomiting Oxycodone HCl (Oxycodone Hcl 5 Mg Tablet) 10 mg PO Q4HP PRN; Protocol PRN Reason: Per Pain Protocol Last Admin: 03/07/22 14:55 Dose: 10 mg Budesonide- Formoterol [ Symbicort] 80-4.5 Mcg 2 dose INH BID [facility] Last Admin: 03/07/22 22:42 Dose: Not Given Pregabalin (Pregabalin 150 Mg Capsule) 150 mg PO TID [facility] Last Admin: 03/07/22 21:50 Dose: 150 mg Propafenone HCl (Propafenone 150 Mg Tablet) 300 mg PO BID [facility] Last Admin: 03/07/22 21:49 Dose: 300 mg Fluticasone/Salmeterol (Fluticasone/Salmeterol 250/50 Inhaler #14) 1 puff INH BID [facility] Last Admin: 03/07/22 22:42 Dose: Not Given Senna (Sennosides 1 Tablet) 2 tab PO HS [facility] Last Admin: 03/07/22 22:42 Dose: Not Given Sodium Chloride (0.9 % Sodium Chloride 10 Ml Syringe) 10 ml IV Q8 [facility] Last Admin: 03/08/22 06:10 Dose: Not Given Spironolactone (Spironolactone 25 Mg Tablet) 25 mg PO QDAY [facility] Last Admin: 03/07/22 08:32 Dose: 25 mg Torsemide (Torsemide 10 Mg Tablet) 20 mg PO BID [facility] Last Admin: 03/07/22 21:49 Dose: 20 mg Trazodone HCl (Trazodone Hcl 50 Mg Tablet) 25 mg PO HSP PRN PRN Reason: Insomnia Vitamin D (Vitamin D3 25 Mcg Tablet) 50 mcg PO QAM [facility] Last Admin: 03/07/22 08:31 Dose: 50 mcg A/P Assessment and plan (1) Multiple rib fractures: Status: Acute Qualifiers: Encounter type: initial encounter Fracture type: closed Laterality: left Qualified Code(s): S22.42XA - Multiple fractures of ribs, left side, initial encounter for closed fracture (2) Urinary tract infection: Status: Acute (3) Depression: Status: Chronic Comment: Stable as of 09/29/09 (4) Osteoarthritis of knees, bilateral: Status: Acute (5) Hypertension: Status: Chronic (6) Bipolar II disorder: Status: Chronic Comment: current episode depressed - mild (7) COPD (chronic obstructive pulmonary disease): Status: Chronic Qualifiers: COPD type: unspecified COPD Qualified Code(s): J44.9 - Chronic obstructive pulmonary disease, unspecified (8) Chronic kidney disease, stage 3: Status: Chronic (9) CHF (congestive heart failure): Status: Chronic (10) Paroxysmal atrial fibrillation with RVR: Status: Chronic Narrative A/P Narrative: Assessment and Plans: 1. 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 SNF placement 2. Urinary tract infection: Blood culture, no growth to date Urine culture, K pneumoniae cbc w/ auto diff in the morning to trend WBC Rocephin Tylenol 3. Atrial fibrillation, s/p pacemaker placement: Okay to d/c peer counselor Hold Eliquis Metoprolol ER Diltiazem ER Propafenone 4. COPD: Supplemental oxygen therapy (baseline:2L/min) Bronchodilators Advair Diskus Symbicort 5. Diastolic CHF, stable: Supplemental oxygen therapy (baseline:2L/min) Metoprolol ER Torsemide Aldactone 6. Chronic kidney disease stage III: Avoid nephrotoxic agents Saline lock Repeat CMP in the morning to trend kidney functions 7. History of essential hypertensions: Patient is currently normotensive Metoprolol ER Diltiazem ER Torsemide Aldactone 8. History of bipolar depression: Duloxetine Doxepin Aripiprazole 9. History of bilateral knee osteoarthritis, status post right knee total replacement: Continue pain management, see #1 Physical therapy Occupational therapy GI ppx: not currently indicated DVT ppx: SCDs Code status: Full Prognosis: Stable Disposition: inpatient med surg; pending SNF placement Time Spent With Patient Time: Total time spent is greater than 50% in coordination of care (as documented) at patient's floor/unit and/or counseling patient: Total time spent with greater than 50% in coordination of care (as documented) at patient's floor/unit and/or counseling patient:: 35 - 50 minutes QUALITY Stroke Symptom Onset Unknown: No VTE Deep Vein Thrombosis/Pulmonary Embolism Present on Admission: No
[2022-03-08] MEDS: VITAMIN D3 25 MCG TABLET PO SCH (09:55)
[2022-03-08] MEDS: PROPAFENONE 150 MG TABLET PO SCH ×2 (09:55→21:27)
[2022-03-08] MEDS: DULoxetine 30 MG CAPSULE PO SCH ×2 (09:56→21:27)
[2022-03-08] MEDS: DILTIAZEM 180 MG CAP.XL.24H PO SCH ×2 (09:56→21:29)
[2022-03-08] MEDS: PREGABALIN 150 MG CAPSULE PO SCH ×3 (09:56→21:28)
[2022-03-08] MEDS: SPIRONOLACTONE 25 MG TABLET PO SCH (09:56)
[2022-03-08] MEDS: TORSEMIDE 10 MG TABLET PO SCH ×2 (09:56→21:27)
[2022-03-08] MEDS: METOPROLOL SUCCINATE 50 MG TAB.XL.24H PO SCH ×2 (09:56→21:28)
[2022-03-08] MEDS: DOCUSATE SODIUM 100 MG CAPSULE PO SCH ×2 (09:56→21:28)
[2022-03-08] MEDS: lamoTRIgine 100 MG TABLET PO SCH (09:56)
[2022-03-08] MEDS: IPRATROPIUM/ALBUTEROL SULFATE 1 PUFF INHALER INH SCH ×4 (09:57→21:47)
[2022-03-08] MEDS: FLUTICASONE/SALMETEROL 250/50 INHALER #14 INH SCH ×2 (09:57→21:46)
[2022-03-08] MEDS: BUDESONIDE FORMOTEROL INH SCH ×2 (09:57→21:47)
[2022-03-08] MEDS: cefTRIAXone 1 GM VIAL IV SCH (09:57)
[2022-03-08] MEDS ORDERED: cefTRIAXone 1 GM VIAL IV ONE (20:22)
[2022-03-08] MEDS: BENZTROPINE 1 MG TABLET PO SCH (21:27)
[2022-03-08] MEDS: ARIPIPRAZOLE 5 MG TABLET PO SCH (21:27)
[2022-03-08] MEDS: DOXEPIN 25 MG CAPSULE PO SCH (21:28)
[2022-03-08] MEDS: SENNOSIDES 1 TABLET PO SCH (21:28)
[2022-03-09] MEDS: 0.9 % SODIUM CHLORIDE 10 ML SYRINGE IV SCH ×3 (04:10→21:25)
[2022-03-09] MEDS: IBUPROFEN 600 MG TABLET PO PRN ×2 (04:20→21:40)
[2022-03-09 06:57] LABS: Basophils # (Auto) 0.06 K/mcL (0.00-0.30); Basophils % (Auto) 0.7 % (0.0-2.0); Eosinophils % (Auto) 3.4 % (0.0-7.0); Hematocrit 31.8 % (34.1-44.9); Hemoglobin 9.7 g/dL (11.2-15.7); Lymphocytes # (Auto) 1.85 K/mcL (1.50-4.80); Lymphocytes % (Auto) 20.9 % (15.5-49.0); Mean Cell Volume 96.4 fL (80.0-100.0); Mean Corpuscular HGB Conc 30.5 g/dL (31.0-36.0); Mean Platelet Volume 10.5 fL (7.4-10.4); Monocytes # (Auto) 1.15 K/mcL (0.10-0.90); Neutrophils % (Auto) 61.4 % (38.0-78.0); Platelet Count 243 K/mcL (140-440); Red Cell Distribution Width 13.1 % (11.5-14.5); WBC 8.8 K/mcL (4.5-11.0)
[2022-03-09 07:23] LABS: ALT/SGPT 9 U/L (<40); AST/SGOT 14 U/L (<32); Albumin 3.1 gm/dL (3.2-5.2); Albumin/Globulin Ratio 0.8 (1.0-2.3); Alkaline Phosphatase 113 U/L (39-117); Bilirubin,Total 0.2 mg/dL (0.1-1.0); Blood Urea Nitrogen 18 mg/dL (8-23); Calcium 9.6 mg/dL (8.6-10.4); Carbon Dioxide 38 mmol/L (22-30); Chloride 94 mmol/L (96-108); Globulin 3.8 gm/dL (2.2-3.7); Glomerular Filtration Rate 36; Glucose 105 mg/dL (70-105); Phosphorous 3.9 mg/dL (2.5-4.5)
[2022-03-09] MEDS: TORSEMIDE 10 MG TABLET PO SCH ×2 (08:29→21:19)
[2022-03-09] MEDS: SPIRONOLACTONE 25 MG TABLET PO SCH (08:30)
[2022-03-09] MEDS: lamoTRIgine 100 MG TABLET PO SCH (08:30)
[2022-03-09] MEDS: VITAMIN D3 25 MCG TABLET PO SCH (08:30)
[2022-03-09] MEDS: PROPAFENONE 150 MG TABLET PO SCH ×2 (08:30→21:18)
[2022-03-09] MEDS: DULoxetine 30 MG CAPSULE PO SCH ×2 (08:30→21:18)
[2022-03-09] MEDS: DOCUSATE SODIUM 100 MG CAPSULE PO SCH ×2 (08:31→21:19)
[2022-03-09] MEDS: BUDESONIDE FORMOTEROL INH SCH ×2 (08:31→21:24)
[2022-03-09] MEDS: IPRATROPIUM/ALBUTEROL SULFATE 1 PUFF INHALER INH SCH ×4 (08:31→21:24)
[2022-03-09] MEDS: METOPROLOL SUCCINATE 50 MG TAB.XL.24H PO SCH ×2 (08:31→21:18)
[2022-03-09] MEDS: PREGABALIN 150 MG CAPSULE PO SCH ×3 (08:31→21:18)
[2022-03-09] MEDS: FLUTICASONE/SALMETEROL 250/50 INHALER #14 INH SCH ×2 (08:31→21:24)
[2022-03-09] MEDS: DILTIAZEM 180 MG CAP.XL.24H PO SCH ×2 (08:31→21:19)
[2022-03-09] MEDS ORDERED: cefTRIAXone 2 GM in DEXTROSE 5% IN WATER 50 ML IV SCH (09:00)
--- NOTE | 2022-03-09 10:09 | Internal Med Progress Note ---
SUBJECTIVE Subjective Patient information: Note initiated : 03/09/22 at 10:08 am Service Date, if different from initiated Date: [] Patient: Santo Morocho 66 y/o F admitted on 03/06/22 for rib pain. Chief Complaint: [Falls] Principal diagnosis: Klebsiella UTI Interval history: The patient is resting comfortably in bed. We discussed disposition options. Constitutional Vitals: Vital Signs Temp Pulse Resp BP Pulse Ox O2 Del Method O2 Flow Rate 98.5 F 60 20 113/51 94 3 03/09/22 08:00 03/09/22 08:00 03/09/22 08:00 03/09/22 08:00 03/09/22 08:00 03/09/22 08:00 03/09/22 08:00 Period Temp Pulse Resp BP Sys/Guzmán Pulse Ox O2 Del Method O2 Flow Rate Last 24 Hr 96.9 F-98.7 F 60-66 16-20 108-128/47-65 90-94 Nasal Cannula- Nasal Cannula 3-3 Intake and Output 03/08/22 03/09/22 03/09/22 21:59 05:59 13:59 Intake Total 650 Output Total 326 401 Balance -326 249 Weight 127.777 kg Intake & Output: Intake & Output 03/08/22 03/09/22 03/09/22 21:59 05:59 13:59 Intake Total 650 Output Total 326 401 Balance -326 249 Weight 127.777 kg Intake: Oral 650 Output: Urine Catheter Amount 400 Void Amount 325 # of times incontinent of urine 1 1 Other: Meal Dinner Percent of Meal Consumed 100% Urine Appearance Cloudy Purulent Urine Color Dark Yellow Dark Yellow Head Head exam: Present atraumatic and normal inspection Eye Eye exam: Present normal appearance ENT ENT exam: Present mucous membranes moist, normal exam and normal external ear exam Neck Neck exam: Present normal inspection Respiratory Respiratory exam: Present normal respiratory exam Cardiovascular Cardiovascular exam: Present normal rate and rhythm GI/Abdominal GI/Abdominal exam: Present normal bowel sounds Back Exam Back exam: Present normal inspection Neurological Exam Neurological exam: Present alert and oriented X3 Skin Skin exam: Present intact and warm OBJ DATA Labs CBC & Chem 7: 03/09/22 05:06 03/09/22 05:06 Labs: Abnormal Lab Results 03/09/22 03/09/22 03/08/22 05:06 05:06 05:56 RBC 3.30 L Hgb 9.7 L Hct 31.8 L POC Hct MCHC 30.5 L MPV 10.5 H Immature Gran % (Auto) 0.6 H [place] % (Auto) 13.0 H [place] # (Auto) 1.15 H Chloride 94 L 95 L Carbon Dioxide 38 H 32 H POC Total CO2 POC BUN Creatinine 1.5 H 1.8 H POC Creatinine Glucose 113 H POC Glucose POC WB Ioniz Calcium Albumin 3.1 L 3.0 L Globulin 3.8 H Albumin/Globulin Ratio 0.8 L 0.8 L Urine Appearance Urine Protein Urine Occult Blood Urine Nitrate Ur Leukocyte Esterase Urine RBC Urine WBC Urine Bacteria 03/08/22 03/07/22 03/07/22 05:56 05:28 05:28 RBC 3.34 L 3.33 L Hgb 9.9 L 9.8 L Hct 32.9 L 32.7 L POC Hct MCHC 30.1 L 30.0 L MPV Immature Gran % (Auto) [place] % (Auto) 14.2 H 12.6 H [place] # (Auto) 1.29 H 1.06 H Chloride 95 L Carbon Dioxide 32 H POC Total CO2 POC BUN Creatinine 1.6 H POC Creatinine Glucose POC Glucose POC WB Ioniz Calcium Albumin 3.0 L Globulin Albumin/Globulin Ratio 0.9 L Urine Appearance Urine Protein Urine Occult Blood Urine Nitrate Ur Leukocyte Esterase Urine RBC Urine WBC Urine Bacteria 03/06/22 03/06/22 03/06/22 19:56 19:27 19:14 RBC 3.34 L Hgb 9.9 L Hct 32.8 L POC Hct 31.0 L MCHC 30.2 L MPV Immature Gran % (Auto) [place] % (Auto) 12.9 H [place] # (Auto) 1.31 H Chloride Carbon Dioxide POC Total CO2 36.0 H POC BUN 22 H Creatinine POC Creatinine 1.8 H Glucose POC Glucose 126 H POC WB Ioniz Calcium 1.11 L Albumin Globulin Albumin/Globulin Ratio Urine Appearance Cloudy A Urine Protein 100 mg/dl A Urine Occult Blood Moderate A Urine Nitrate Positive A Ur Leukocyte Esterase Large A Urine RBC 59 H Urine WBC > 182 H Urine Bacteria Mod A Meds: Medications Acetaminophen (Acetaminophen 325 Mg Tablet) 650 mg PO Q6HP PRN; Protocol PRN Reason: Per Pain Protocol/Fever > 101 Albuterol Sulfate (Albuterol Sulfate 2.5 Mg/3 Ml Nebulizer) 2.5 mg INH Q4HP PRN PRN Reason: Shortness Of Breath Albuterol/Ipratropium (Ipratropium/Albuterol 3 Ml Ampul.Neb) 3 ml NEB Q4HRT PRN PRN Reason: Wheezing Albuterol/Ipratropium (Ipratropium/Albuterol Sulfate 1 Puff Inhaler) 2 puff INH QID [facility] Last Admin: 03/09/22 08:31 Dose: 2 puff Benztropine Mesylate (Benztropine 1 Mg Tablet) 0.5 mg PO QHS [facility] Last Admin: 03/08/22 21:27 Dose: 0.5 mg Diltiazem HCl (Diltiazem 180 Mg Cap.Xl.24h) 180 mg PO BID [facility] Last Admin: 03/09/22 08:31 Dose: 180 mg Docusate Sodium (Docusate Sodium 100 Mg Capsule) 100 mg PO BID [facility] Last Admin: 03/09/22 08:31 Dose: 100 mg Doxepin HCl (Doxepin 25 Mg Capsule) 25 mg PO QHS [facility] Last Admin: 03/08/22 21:28 Dose: 25 mg Duloxetine HCl (Duloxetine 30 Mg Capsule) 60 mg PO BID [facility] Last Admin: 03/09/22 08:30 Dose: 60 mg Hydromorphone HCl (Hydromorphone 0.5 Mg/0.5 Ml Syringe) 0.5 mg IV Q4HP PRN; Protocol PRN Reason: Per Pain Protocol Last Admin: 03/08/22 09:57 Dose: 0.5 mg Ceftriaxone Sodium 2 gm/ (Dextrose) 50 mls @ 100 mls/hr IV Q24H [facility]; Protocol Ibuprofen (Ibuprofen 600 Mg Tablet) 600 mg PO QIDP PRN; Protocol PRN Reason: Per Pain Protocol/Fever > 101 Last Admin: 03/09/22 04:20 Dose: 600 mg Lamotrigine (Lamotrigine 100 Mg Tablet) 50 mg PO QDAY [facility] Last Admin: 03/09/22 08:30 Dose: 50 mg Lorazepam (Lorazepam 0.5 Mg Tablet) 0.5 mg PO BIDP PRN PRN Reason: Anxiety Metoprolol Succinate (Metoprolol Succinate 50 Mg Tab.Xl.24h) 50 mg PO BID [facility] Last Admin: 03/09/22 08:31 Dose: 50 mg Metoprolol Tartrate (Metoprolol Tartrate 5 Mg/5 Ml Vial) 5 mg IV Q5M PRN PRN Reason: Tachyarrhythmias Ondansetron HCl (Ondansetron 4 Mg/2 Ml Vial) 4 mg IV Q6HP PRN PRN Reason: Nausea And Vomiting Oxycodone HCl (Oxycodone Hcl 5 Mg Tablet) 10 mg PO Q4HP PRN; Protocol PRN Reason: Per Pain Protocol Last Admin: 03/07/22 14:55 Dose: 10 mg Budesonide- Formoterol [ Symbicort] 80-4.5 Mcg 2 dose INH BID [facility] Last Admin: 03/09/22 08:31 Dose: Not Given Pregabalin (Pregabalin 150 Mg Capsule) 150 mg PO TID [facility] Last Admin: 03/09/22 08:31 Dose: 150 mg Propafenone HCl (Propafenone 150 Mg Tablet) 300 mg PO BID [facility] Last Admin: 03/09/22 08:30 Dose: 300 mg Fluticasone/Salmeterol (Fluticasone/Salmeterol 250/50 Inhaler #14) 1 puff INH BID [facility] Last Admin: 03/09/22 08:31 Dose: Not Given Senna (Sennosides 1 Tablet) 2 tab PO HS [facility] Last Admin: 03/08/22 21:28 Dose: 2 tab Sodium Chloride (0.9 % Sodium Chloride 10 Ml Syringe) 10 ml IV Q8 [facility] Last Admin: 03/09/22 04:10 Dose: 10 ml Spironolactone (Spironolactone 25 Mg Tablet) 25 mg PO QDAY [facility] Last Admin: 03/09/22 08:30 Dose: 25 mg Torsemide (Torsemide 10 Mg Tablet) 20 mg PO BID [facility] Last Admin: 03/09/22 08:29 Dose: 20 mg Trazodone HCl (Trazodone Hcl 50 Mg Tablet) 25 mg PO HSP PRN PRN Reason: Insomnia Vitamin D (Vitamin D3 25 Mcg Tablet) 50 mcg PO QAM [facility] Last Admin: 03/09/22 08:30 Dose: 50 mcg A/P Assessment and plan (1) Multiple rib fractures: Status: Acute Qualifiers: Encounter type: initial encounter Fracture type: closed Laterality: left Qualified Code(s): S22.42XA - Multiple fractures of ribs, left side, initial encounter for closed fracture (2) Urinary tract infection: Status: Acute (3) Depression: Status: Chronic Comment: Stable as of 09/29/09 (4) Osteoarthritis of knees, bilateral: Status: Acute (5) Hypertension: Status: Chronic (6) Bipolar II disorder: Status: Chronic Comment: current episode depressed - mild (7) COPD (chronic obstructive pulmonary disease): Status: Chronic Qualifiers: COPD type: unspecified COPD Qualified Code(s): J44.9 - Chronic obstructive pulmonary disease, unspecified (8) Chronic kidney disease, stage 3: Status: Chronic (9) CHF (congestive heart failure): Status: Chronic (10) Paroxysmal atrial fibrillation with RVR: Status: Chronic Narrative A/P Narrative: Assessment and Plans: 1. Frequent falls with left multiple ribs fractures, no complications such as pn eumothorax/hemopneumothorax: Inpatient med surg Tylenol Ibuprofen Oxycodone Dilaudid IV-> discontinue Incentive spirometry q1HWA Supplemental oxygen trading managerpopulation health manager therapy Occupational therapy--->recs. SNF placement 2. Urinary tract infection: Blood culture-> coag negative staph was a contaminant Urine culture, K pneumoniae cbc w/ auto diff in the morning to trend WBC Rocephin-> will complete a 3-day course Tylenol 3. Atrial fibrillation, s/p pacemaker placement: Okay to d/c panel monitor Hold Eliquis Metoprolol ER Diltiazem ER Propafenone 4. COPD: Supplemental oxygen therapy (baseline:2L/min) Bronchodilators Advair Diskus Symbicort 5. Diastolic CHF, stable: Supplemental oxygen therapy (baseline:2L/min) Metoprolol ER Torsemide Aldactone 6. Chronic kidney disease stage III: Avoid nephrotoxic agents Saline lock Repeat CMP in the morning to trend kidney functions 7. History of essential hypertensions: Patient is currently normotensive Metoprolol ER Diltiazem ER Torsemide Aldactone 8. History of bipolar depression: Duloxetine Doxepin Aripiprazole 9. History of bilateral knee osteoarthritis, status post right knee total replacement: Continue pain management, see #1 Physical therapy Occupational therapy GI ppx: not currently indicated DVT ppx: SCDs Code status: Full Prognosis: Stable Disposition: inpatient med surg; pending SNF placement Time Spent With Patient Time: Total time spent is greater than 50% in coordination of care (as documented) at patient's floor/unit and/or counseling patient: Total time spent with greater than 50% in coordination of care (as documented) at patient's floor/unit and/or counseling patient:: 25 - 35 minutes QUALITY Stroke Symptom Onset Unknown: No VTE Deep Vein Thrombosis/Pulmonary Embolism Present on Admission: No
[2022-03-09] MEDS: cefTRIAXone 1 GM VIAL IV SCH (10:31)
[2022-03-09] MEDS ORDERED: cefTRIAXone 1 GM VIAL IM SCH (11:20)
[2022-03-09] MEDS: ARIPIPRAZOLE 5 MG TABLET PO SCH (21:18)
[2022-03-09] MEDS: SENNOSIDES 1 TABLET PO SCH (21:18)
[2022-03-09] MEDS: DOXEPIN 25 MG CAPSULE PO SCH (21:18)
[2022-03-09] MEDS: BENZTROPINE 1 MG TABLET PO SCH (21:19)
[2022-03-10] MEDS: cefTRIAXone 1 GM VIAL IV SCH (06:34)
[2022-03-10] MEDS: 0.9 % SODIUM CHLORIDE 10 ML SYRINGE IV SCH ×2 (07:14→13:28)
[2022-03-10] MEDS: IBUPROFEN 600 MG TABLET PO PRN ×2 (08:26→20:16)
[2022-03-10] MEDS: VITAMIN D3 25 MCG TABLET PO SCH (08:26)
[2022-03-10] MEDS: METOPROLOL SUCCINATE 50 MG TAB.XL.24H PO SCH ×2 (08:26→20:16)
[2022-03-10] MEDS: TORSEMIDE 10 MG TABLET PO SCH ×2 (08:26→20:17)
[2022-03-10] MEDS: lamoTRIgine 100 MG TABLET PO SCH (08:27)
[2022-03-10] MEDS: PREGABALIN 150 MG CAPSULE PO SCH ×3 (08:28→20:17)
[2022-03-10] MEDS: SPIRONOLACTONE 25 MG TABLET PO SCH (08:28)
[2022-03-10] MEDS: DILTIAZEM 180 MG CAP.XL.24H PO SCH ×2 (08:28→20:17)
[2022-03-10] MEDS: PROPAFENONE 150 MG TABLET PO SCH ×2 (08:29→20:16)
[2022-03-10] MEDS: DOCUSATE SODIUM 100 MG CAPSULE PO SCH ×2 (08:29→20:17)
[2022-03-10] MEDS: BUDESONIDE FORMOTEROL INH SCH ×2 (08:29→21:49)
[2022-03-10] MEDS: FLUTICASONE/SALMETEROL 250/50 INHALER #14 INH SCH ×2 (08:29→21:49)
[2022-03-10] MEDS: IPRATROPIUM/ALBUTEROL SULFATE 1 PUFF INHALER INH SCH ×4 (08:29→20:22)
[2022-03-10] MEDS: DULoxetine 30 MG CAPSULE PO SCH ×2 (08:29→20:17)
--- NOTE | 2022-03-10 10:46 | Internal Med Progress Note ---
SUBJECTIVE Subjective Patient information: Note initiated : 03/10/22 at 10:45 am Service Date, if different from initiated Date: [] Patient: Santo Morocho 66 y/o F admitted on 03/06/22 for rib pain. Chief Complaint: [Urinary tract infection and multiple falls] Principal diagnosis: Klebsiella UTI Interval history: The patient was tearful this morning when discussing disposition. She had no other active complaints or concerns. RN was present at the bedside. Constitutional Vitals: Vital Signs Temp Pulse Resp BP Pulse Ox O2 Del Method O2 Flow Rate 97.7 F 62 22 117/79 95 3 03/10/22 07:37 03/10/22 07:37 03/10/22 07:37 03/10/22 07:37 03/10/22 07:37 03/10/22 07:37 03/10/22 07:37 Period Temp Pulse Resp BP Sys/Guzmán Pulse Ox O2 Del Method O2 Flow Rate Last 24 Hr 96.4 F-97.8 F 61-63 16-22 101-117/45-79 92-98 Nasal Cannula- Nasal Cannula 3-3 Intake and Output 03/09/22 03/10/22 03/10/22 21:59 05:59 13:59 Intake Total 1160 350 120 Output Total 425 425 450 Balance 735 -75 -330 Weight 128.185 kg Intake & Output: Intake & Output 03/09/22 03/10/22 03/10/22 21:59 05:59 13:59 Intake Total 1160 350 120 Output Total 425 425 450 Balance 735 -75 -330 Weight 128.185 kg Intake: Oral 1160 350 120 Output: Void Amount 425 425 450 Other: Meal Lunch Breakfast Percent of Meal Consumed 100% 25% Feeding Ability Assist with Tray Set Up Assist with Tray Set Up Urine Appearance Cloudy Urine Color Straw Dark Yellow # Voids 1 Head Head exam: Present atraumatic and normal inspection Eye Eye exam: Present normal appearance ENT ENT exam: Present mucous membranes moist, normal exam and normal external ear exam Neck Neck exam: Present normal inspection Respiratory Respiratory exam: Present normal respiratory exam Cardiovascular Cardiovascular exam: Present normal rate and rhythm GI/Abdominal GI/Abdominal exam: Present normal bowel sounds Back Exam Back exam: Present normal inspection Neurological Exam Neurological exam: Present alert and oriented X3 Skin Skin exam: Present intact and warm OBJ DATA Labs CBC & Chem 7: 03/09/22 05:06 03/09/22 05:06 Labs: Abnormal Lab Results 03/09/22 03/09/22 03/08/22 05:06 05:06 05:56 RBC 3.30 L Hgb 9.7 L Hct 31.8 L MCHC 30.5 L MPV 10.5 H Immature Gran % (Auto) 0.6 H [place] % (Auto) 13.0 H [place] # (Auto) 1.15 H Chloride 94 L 95 L Carbon Dioxide 38 H 32 H Creatinine 1.5 H 1.8 H Glucose 113 H Albumin 3.1 L 3.0 L Globulin 3.8 H Albumin/Globulin Ratio 0.8 L 0.8 L 03/08/22 05:56 RBC 3.34 L Hgb 9.9 L Hct 32.9 L MCHC 30.1 L MPV Immature Gran % (Auto) [place] % (Auto) 14.2 H [place] # (Auto) 1.29 H Chloride Carbon Dioxide Creatinine Glucose Albumin Globulin Albumin/Globulin Ratio Meds: Medications Acetaminophen (Acetaminophen 325 Mg Tablet) 650 mg PO Q6HP PRN; Protocol PRN Reason: Per Pain Protocol/Fever > 101 Albuterol Sulfate (Albuterol Sulfate 2.5 Mg/3 Ml Nebulizer) 2.5 mg INH Q4HP PRN PRN Reason: Shortness Of Breath Albuterol/Ipratropium (Ipratropium/Albuterol 3 Ml Ampul.Neb) 3 ml NEB Q4HRT PRN PRN Reason: Wheezing Albuterol/Ipratropium (Ipratropium/Albuterol Sulfate 1 Puff Inhaler) 2 puff INH QID [facility] Last Admin: 03/10/22 08:29 Dose: 2 puff Benztropine Mesylate (Benztropine 1 Mg Tablet) 0.5 mg PO QHS [facility] Last Admin: 03/09/22 21:19 Dose: 0.5 mg Diltiazem HCl (Diltiazem 180 Mg Cap.Xl.24h) 180 mg PO BID [facility] Last Admin: 03/10/22 08:28 Dose: 180 mg Docusate Sodium (Docusate Sodium 100 Mg Capsule) 100 mg PO BID [facility] Last Admin: 03/10/22 08:29 Dose: 100 mg Doxepin HCl (Doxepin 25 Mg Capsule) 25 mg PO QHS [facility] Last Admin: 03/09/22 21:18 Dose: 25 mg Duloxetine HCl (Duloxetine 30 Mg Capsule) 60 mg PO BID [facility] Last Admin: 03/10/22 08:29 Dose: 60 mg Ibuprofen (Ibuprofen 600 Mg Tablet) 600 mg PO QIDP PRN; Protocol PRN Reason: Per Pain Protocol/Fever > 101 Last Admin: 03/10/22 08:26 Dose: 600 mg Lamotrigine (Lamotrigine 100 Mg Tablet) 50 mg PO QDAY [facility] Last Admin: 03/10/22 08:27 Dose: 50 mg Lorazepam (Lorazepam 0.5 Mg Tablet) 0.5 mg PO BIDP PRN PRN Reason: Anxiety Metoprolol Succinate (Metoprolol Succinate 50 Mg Tab.Xl.24h) 50 mg PO BID [facility] Last Admin: 03/10/22 08:26 Dose: 50 mg Metoprolol Tartrate (Metoprolol Tartrate 5 Mg/5 Ml Vial) 5 mg IV Q5M PRN PRN Reason: Tachyarrhythmias Ondansetron HCl (Ondansetron 4 Mg/2 Ml Vial) 4 mg IV Q6HP PRN PRN Reason: Nausea And Vomiting Oxycodone HCl (Oxycodone Hcl 5 Mg Tablet) 10 mg PO Q4HP PRN; Protocol PRN Reason: Per Pain Protocol Last Admin: 03/07/22 14:55 Dose: 10 mg Budesonide- Formoterol [ Symbicort] 80-4.5 Mcg 2 dose INH BID [facility] Last Admin: 03/10/22 08:29 Dose: Not Given Pregabalin (Pregabalin 150 Mg Capsule) 150 mg PO TID [facility] Last Admin: 03/10/22 08:28 Dose: 150 mg Propafenone HCl (Propafenone 150 Mg Tablet) 300 mg PO BID [facility] Last Admin: 03/10/22 08:29 Dose: 300 mg Fluticasone/Salmeterol (Fluticasone/Salmeterol 250/50 Inhaler #14) 1 puff INH BID [facility] Last Admin: 03/10/22 08:29 Dose: Not Given Senna (Sennosides 1 Tablet) 2 tab PO HS [facility] Last Admin: 03/09/22 21:18 Dose: 2 tab Sodium Chloride (0.9 % Sodium Chloride 10 Ml Syringe) 10 ml IV Q8 [facility] Last Admin: 03/10/22 07:14 Dose: Not Given Spironolactone (Spironolactone 25 Mg Tablet) 25 mg PO QDAY [facility] Last Admin: 03/10/22 08:28 Dose: 25 mg Torsemide (Torsemide 10 Mg Tablet) 20 mg PO BID [facility] Last Admin: 03/10/22 08:26 Dose: 20 mg Trazodone HCl (Trazodone Hcl 50 Mg Tablet) 25 mg PO HSP PRN PRN Reason: Insomnia Vitamin D (Vitamin D3 25 Mcg Tablet) 50 mcg PO QAM [facility] Last Admin: 03/10/22 08:26 Dose: 50 mcg A/P Assessment and plan (1) Multiple rib fractures: Status: Acute Qualifiers: Encounter type: initial encounter Fracture type: closed Laterality: left Qualified Code(s): S22.42XA - Multiple fractures of ribs, left side, initial encounter for closed fracture (2) Urinary tract infection: Status: Acute (3) Depression: Status: Chronic Comment: Stable as of 09/29/09 (4) Osteoarthritis of knees, bilateral: Status: Acute (5) Hypertension: Status: Chronic (6) Bipolar II disorder: Status: Chronic Comment: current episode depressed - mild (7) COPD (chronic obstructive pulmonary disease): Status: Chronic Qualifiers: COPD type: unspecified COPD Qualified Code(s): J44.9 - Chronic obstructive pulmonary disease, unspecified (8) Chronic kidney disease, stage 3: Status: Chronic (9) CHF (congestive heart failure): Status: Chronic (10) Paroxysmal atrial fibrillation with RVR: Status: Chronic Narrative A/P Narrative: Assessment and Plans: 1. Frequent falls with left multiple ribs fractures, no complications such as pneumothorax/hemopneumothorax: Inpatient med surg Tylenol Ibuprofen Oxycodone Dilaudid IV-> discontinue Incentive spirometry q1HWA Supplemental oxygen manager technical salesdisability case manager therapy Occupational therapy--->recs. SNF placement 2. Urinary tract infection: Blood culture-> coag negative staph was a contaminant Urine culture, K pneumoniae cbc w/ auto diff in the morning to trend WBC Rocephin-> will complete a 3-day course 03/10 Tylenol 3. Atrial fibrillation, s/p pacemaker placement: Okay to d/c manager monitoring Hold Eliquis Metoprolol ER Diltiazem ER Propafenone 4. COPD: Supplemental oxygen therapy (baseline:2L/min) Bronchodilators Advair Diskus Symbicort 5. Diastolic CHF, stable: Supplemental oxygen therapy (baseline:2L/min) Metoprolol ER Torsemide Aldactone 6. Chronic kidney disease stage III: Avoid nephrotoxic agents Saline lock Repeat CMP in the morning to trend kidney functions 7. History of essential hypertensions: Patient is currently normotensive Metoprolol ER Diltiazem ER Torsemide Aldactone 8. History of bipolar depression: Duloxetine Doxepin Aripiprazole 9. History of bilateral knee osteoarthritis, status post right knee total replacement: Continue pain management, see #1 Physical therapy Occupational therapy GI ppx: not currently indicated DVT ppx: SCDs Code status: Full Prognosis: Stable Disposition: inpatient med surg; pending SNF placement Time Spent With Patient Time: Total time spent is greater than 50% in coordination of care (as documented) at patient's floor/unit and/or counseling patient: Total time spent with greater than 50% in coordination of care (as documented) at patient's floor/unit and/or counseling patient:: 25 - 35 minutes QUALITY Stroke Symptom Onset Unknown: No VTE Deep Vein Thrombosis/Pulmonary Embolism Present on Admission: No
[2022-03-10] MEDS: DOXEPIN 25 MG CAPSULE PO SCH (20:16)
[2022-03-10] MEDS: BENZTROPINE 1 MG TABLET PO SCH (20:16)
[2022-03-10] MEDS: ARIPIPRAZOLE 5 MG TABLET PO SCH (20:16)
[2022-03-10] MEDS: SENNOSIDES 1 TABLET PO SCH (20:17)
[2022-03-11] MEDS: IBUPROFEN 600 MG TABLET PO PRN ×2 (02:12→08:55)
[2022-03-11] MEDS: TORSEMIDE 10 MG TABLET PO SCH (08:53)
[2022-03-11] MEDS: DULoxetine 30 MG CAPSULE PO SCH (08:53)
[2022-03-11] MEDS: PROPAFENONE 150 MG TABLET PO SCH (08:53)
[2022-03-11] MEDS: DOCUSATE SODIUM 100 MG CAPSULE PO SCH (08:54)
[2022-03-11] MEDS: SPIRONOLACTONE 25 MG TABLET PO SCH (08:54)
[2022-03-11] MEDS: DILTIAZEM 180 MG CAP.XL.24H PO SCH (08:54)
[2022-03-11] MEDS: VITAMIN D3 25 MCG TABLET PO SCH (08:54)
[2022-03-11] MEDS: PREGABALIN 150 MG CAPSULE PO SCH (08:54)
[2022-03-11] MEDS: lamoTRIgine 100 MG TABLET PO SCH (08:54)
[2022-03-11] MEDS: METOPROLOL SUCCINATE 50 MG TAB.XL.24H PO SCH (08:55)
[2022-03-11] MEDS: IPRATROPIUM/ALBUTEROL SULFATE 1 PUFF INHALER INH SCH (08:56)
--- NOTE | 2022-03-11 09:11 | Discharge Summary ---
Discharge Provider Provider IMPORTANT FOLLOW-UP INFORMATION FOR PCP: 1. Address home medications that increase falls risk Patient information: Note initiated : 03/11/22 at 9:10 am Service Date, if different from initiated Date: [] Patient: Santo Morocho 66 y/o F admitted on 03/06/22 for rib pain. Chief Complaint: [] Date of admission: 03/06/22 21:35 Discharge date: 03/11/22 Primary care physician: Vincenzo William MD Consults: 03/06/22 Consult to Physician [CONS] Stat Comment: Consulting Provider: Samy Uribe Reason For Exam: Physician to Consult Attending physician on discharge: [facility] Emma COURSE Hospital Course Hospital course: History of present illness: Ms. Morocho is a 66 year old F history of atrial fibrillation's on Eliquis status post pacemaker placement, COPD on home oxygen therapy baseline 2 L/min, congestive heart failure, chronic kidney disease stage III, essential hypertensions, bipolar depressions, knees osteoarthritis status post right knee replacement, presenting with frequent falls. It was reported that patient's fell around 2 AM this morning and then fell again in the afternoon. The first episode was being described as the patient's leg gave out while she was in the bathroom and she landed on her left side. The second fall episode was not being described in much details by either the family or the at the bedside. Patient's denies any chest pain or palpitations or shortness of breath at either incidents. There was also no reported loss of consciousness. Patient is currently complaining of left lateral chest pain, 8 out of 10 in severity, constant, and unable to describe the nature of the pain. CT of the head without contrast did not show any intracranial hemorrhage or any other acute intra cranial pathologies. Chest x-ray preliminary result showing at least 2 left- sided rib fractures without complications such as pneumothorax or hemothorax. Labs significant for UA showing the presence of urinary tract infections. H&H stable at the baseline. Admission request was called for symptoms controlled for rib fractures as well as treatment for urinary tract infections. In additions, physical therapy Occupational Therapy evaluations and treatments for placement pending also required. A/P Narrative: Assessment and Plans: 1. Frequent falls with left multiple ribs fractures, no complications such as pneumothorax/hemopneumothorax: Inpatient med surg Tylenol Ibuprofen Oxycodone Dilaudid IV->discontinue Incentive spirometry q1HWA Supplemental oxygen relationship manageradoption manager therapy Occupational therapy--->recs. SNF placement 2. Urinary tract infection: Blood culture->coag negative staph was a contaminant Urine culture, K pneumoniae cbc w/ auto diff in the morning to trend WBC Rocephin->will complete a 3-day course 03/10 Tylenol 3. 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 COPD: Supplemental oxygen therapy (baseline:2L/min) Bronchodilators Advair Diskus Symbicort 5. Diastolic CHF, stable: Supplemental oxygen therapy (baseline:2L/min) Metoprolol ER Torsemide Aldactone 6. Chronic kidney disease stage III: Avoid nephrotoxic agents Saline lock Repeat CMP in the morning to trend kidney functions 7. History of essential hypertensions: Patient is currently normotensive Metoprolol ER Diltiazem ER Torsemide Aldactone 8. History of bipolar depression: Duloxetine Doxepin Aripiprazole 9. History of bilateral knee osteoarthritis, status post right knee total replacement: Continue pain management, see #1 Physical therapy Occupational therapy Discharge diagnosis: Falls, weakness, UTI Time Spent with Patient Time attestation: Total time spent providing and/or coordinating discharge services: Time spent: Greater than 30 minutes EXAM Constitutional Vitals: Temp Pulse Resp BP Pulse Ox O2 Del Method O2 Flow Rate 97.8 F 68 14 122/75 97 2 03/11/22 06:58 03/11/22 06:58 03/11/22 06:58 03/11/22 06:58 03/11/22 07:00 03/11/22 07:38 03/11/22 07:38 General appearance: average body habitus Head Head exam: Present atraumatic, normal inspection and normocephalic Eye Eye exam: Present EOMI, normal appearance and PERRL; Absent conjunctival injection ENT ENT exam: Present normal exam; Absent mucous membranes dry Neck Neck exam: Present full ROM; Absent lymphadenopathy Respiratory Respiratory exam: Present normal respiratory exam and CTAB; Absent decreased breath sounds, respiratory distress or wheezes Cardiovascular Cardiovascular exam: Present normal rate and rhythm and RRR; Absent JVD GI/Abdominal GI/Abdominal exam: Present normal bowel sounds and soft; Absent diminished bowel sounds, distended, guarding, mass, rebound or tenderness Neurological Exam Neurological exam: Present alert, CN II-XII intact and oriented X3 Psychiatric Psychiatric exam: Present normal affect and normal mood Skin Skin exam: Present intact and warm; Absent erythema, pallor, petechiae or rash Discharge Plan Patient/Caregiver Discharge Instructions Activity: as per physical therapy Diet: Regular Diet Instructions: Fall Prevention (DC) Prescriptions: Continued lamotrigine 100 mg tablet 50 mg PO QDAY 30 Days Qty: 15 3RF benztropine 0.5 mg tablet 0.5 mg PO QHS Qty: 30 2RF aripiprazole 5 mg tablet See Rx Instructions .ROUTE .COMPLEX Qty: 15 2RF Dose Instruction: TAKE ONE TABLET BY MOUTH AT BEDTIME Rx Instructions: TAKE ONE HALF TABLET BY MOUTH AT BEDTIME doxepin 25 mg capsule 25 mg PO QHS Qty: 30 3RF diltiazem HCl 360 mg capsule,extended release 24 hr 180 mg PO BID albuterol sulfate 2.5 mg /3 mL (0.083 %) solution for nebulization 2.5 mg inhalation PRN Qty: 180 6RF pregabalin 150 MG capsule 150 mg PO TID propafenone 150 mg tablet 2 tab PO BID fluticasone propion-salmeterol [Advair Diskus] 250-50 mcg/dose blister with device 1 puff INHALATION BID metoprolol succinate 100 mg tablet extended release 24 hr 0.5 tab PO BID spironolactone 25 mg tablet 1 tab PO QDAY budesonide-formoterol [Symbicort] 80-4.5 mcg/actuation HFA aerosol inhaler 2 puff INHALATION BID cholecalciferol (vitamin D3) 50 mcg (2,000 unit) capsule 1 cap PO QAM Eliquis 5 mg tablet 1 tab PO BID duloxetine 60 mg capsule,delayed release(DR/EC) 60 mg PO BID torsemide 10 mg tablet 2 tab PO BID lorazepam 0.5 mg tablet See Rx Instructions .ROUTE .COMPLEX Qty: 35 1RF Rx Instructions: TAKE ONE TABLET BY MOUTH DAILY + ONE TABLET BY MOUTH NIGHTLY NEEDED FOR PANIC ATTACK SYMPTOMS Follow Up Plan Follow up with: Vincenzo William MD [Primary Care Provider] - Patient Disposition: Xfer SNF Prognosis: Fair Rehab Potential: Good I certify that the patient requires SNF services: Yes Overall status at discharge: patient is progressing back to baseline Discharge Orders: Discharge Order (Routine); Ordered 03/11/22 Ordered By: Eva FIGUEROA VTE Deep Vein Thrombosis/Pulmonary Embolism Present on Admission: No
[2022-03-11] MEDS: FLUTICASONE/SALMETEROL 250/50 INHALER #14 INH SCH (10:21)
[2022-03-11] MEDS: BUDESONIDE FORMOTEROL INH SCH (10:21)
== END 2022-03-11 11:30 | DRG 184 ==
LOC: ED 17:49 → MEDSUR 21:35
PROVIDERS: ADMIT Internal Medicine; ATTEND Student in an Organized Health Care Education/Training Program